=== PATIENT | female | born 1935 | race Caucasian/White ===

== ENCOUNTER → 2019-07-20 15:23 | Day surgery (SDC) | payer MEDICARE, SELFPAY ==
--- NOTE | 2019-07-20 06:28 | SUR.OPER ---
Patient brought to GI Lab. Instructions for patient undergoing Capsule Endoscopy reviewed with patient. Consent form signed. Sensor array applied to patient's abdomen and connected to recorded. Patient swallowed capsule with 12 ozs of water infused with Simethicone. Patient instructed they may have clear liquids at 0830 this AM and eat or drink at 1030 this AM. Patient instructed to return to GI Lab at 1500 this afternoon for removal of recording device and to call [phone] or to return to the hospital if any nausea and vomiting or abdominal pain is experienced.
--- NOTE | 2019-07-20 14:51 | SUR.OPER ---
Patient arrived to GI lab at 1450. Patient had no questions.
== END | disposition home or self-care (01) ==
PROVIDERS: Visit Provider Internal Medicine Gastroenterology
PROC: 0DJ07ZZ Inspection of Upper Intestinal Tract, Via Natural or Artificial Opening (ICD-10-PCS; CPT 91110; principal; 2019-07-20 07:00)
DX: D64.9 Anemia, unspecified (principal)
CPT/HCPCS: 91110

== ENCOUNTER 2020-10-23 06:35 | Emergency (ER) | payer MEDICARE, SELFPAY ==
[2020-10-23 06:35] VITALS: BP 167/83; PULSE 81; RESP 14; TEMP 36.4; O2SAT 96
--- NOTE | 2020-10-23 06:40 | ECG_ITS ---
Measurements Intervals [place] Rate: 75 P: 152 CO: 172 QRS: 204 QRSD: 97 T: 165 QT: 414 QTc: 463 Interpretive Statements SINUS OR ECTOPIC ATRIAL RHYTHM MINIMAL Q WAVES- INFERIOR LEADS BASELINE ARTIFACT- I, II, III, AVR, AVL, AVF, V1-V6 BORDERLINE ECG Electronically Signed On 10-23-2020 8:49:22 CDT by Sammy Jerry D.O.
[2020-10-23 06:44] LABS: Glucose Point of Care 92 (65-105)
--- NOTE | 2020-10-23 07:00 | PC.NURSE ---
pt having continuous bouts of liquid diarrhea. unable to keep patients depends and linens clean. family at bedside.
[2020-10-23 07:27] LABS: Basophils Percent Auto 0.3 % (0.2-1.2); Eosinophils Absolute Auto 0.1 K/mm3 (0-0.3); Eosinophils Percent Auto 0.8 % (0-4.4); Hematocrit 40.7 % (37.0-47.0); Hemoglobin 12.8 g/dL (12.0-15.0); Immature Granulocyte Absolute 0.03 K/mm3 (0.00-0.031); Immature Granulocyte Percent A 0.3 % (0-0.5); Lymphocytes Absolute Auto 2.06 K/mm3 (0.9-3.2); Lymphocytes Percent Auto 17.5 % (18.3-44.2); Mean Corpuscular HGB Conc 31.4 g/dl (32-36); Mean Corpuscular Hemoglobin 30.3 pg (26-34); Mean Corpuscular Volume 96.4 fl (80-100); Mean Platelet Volume 10.4 fl (7.4-10.4); Monocytes Absolute Auto 0.6 K/mm3 (0.1-0.6); Monocytes Percent Auto 5.4 % (2.6-8.5); Neutrophils Absolute Auto 8.9 K/mm3 (1.3-6.7); Neutrophils Percent Auto 75.7 % (45.5-73.1); Platelet Count Result 305 k/mm3 (150-375); Red Blood Count 4.22 M/mm3 (4.2-5.4); Red Cell Distribution Width 16.6 % (11.5-14.5); White Blood Count 11.8 K/mm3 (4.5-10.0)
[2020-10-23] MEDS: SODIUM CHLORIDE 0.9% IV 1,000 ML 999 ML IV CONT (07:39)
[2020-10-23 08:37] LABS: Alanine Aminotransferase 14 U/L (4-35); Alkaline Phosphatase 74 U/L (38-126); Anion Gap 8 mmol/L (8-16); Aspartate Amino Transferase 30 U/L (14-36); Bilirubin,Total 0.3 mg/dL (0.2-1.3); Blood Urea Nitrogen 64 mg/dL (7-17); Calcium 9.9 mg/dL (8.4-10.2); Carbon Dioxide 22 mmol/L (22-30); Chloride 109 mmol/L (98-107); Estimated CRCL calculation 14 ml/min; Estimated Glomerular Filt Rate 19; Glucose 132 mg/dL (65-105); Potassium 3.7 mmol/L (3.4-5.0); Sodium 139 mmol/L (137-145)
--- NOTE | 2020-10-23 08:43 | ED.GENADULT ---
HPI - General Adult General Chief complaint: Unspecified Stated complaint: cold sweats Time Seen by Provider: 10/23/20 07:00 History of Present Illness HPI narrative: Patient is an 84-year-old female who presents ER with diarrhea. Symptoms began last night. She has a point where she feels like she is constantly having stool come out. These are associate with cold sweats and shaking chills. She has felt feverish but has no documented fevers. No known sick contacts. Has not been on antibiotics recently. No aggravating or alleviating factors. No syncope. 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 Related Data Home Medications Medication Instructions Recorded Confirmed cyanocobalamin (vitamin B-12) 1,000 mcg PO DAILY 05/26/19 10/11/20 [Vitamin B-12] sodium bicarbonate 650 mg tablet 650 mg PO BID 08/02/19 10/11/20 cholecalciferol (vitamin D3) 25 mcg PO DAILY 08/02/20 10/11/20 ferrous sulfate [Iron (ferrous 325 mg PO DAILY 08/02/20 10/11/20 sulfate)] aipoaxzhiesh-kymafnui-nomgcj 1 tablet PO DAILY 08/02/20 10/11/20 [Multivitamin 50 Plus] Allergies Allergy/AdvReac Type Severity Reaction Status Date / Time No Known Allergies Allergy Verified 10/11/20 09:52 Review of Systems Review of Systems: All systems reviewed & are unremarkable except as noted in HPI and below Constitutional: Constitutional: Reports chills, Reports excessive sweating and Reports fever(s) Cardiovascular: Cardiovascular: Denies chest pain and Denies radiating jaw, neck or arm pain Gastrointestinal: Gastrointestinal: Reports abdominal pain, Denies hematochezia, Denies nausea and Denies vomiting Musculoskeletal: Musculoskeletal: Denies back pain and Reports muscle cramps (Calves) [facility] Past Medical History Medical History (Updated 10/23/20 @ 10:23 by Santos Smith MD) Anemia Anemia was evaluated in August [address] Hobson. Colonoscopy was unremarkable. Upper endoscopy showed a 4 mm nodular region at the gastroesophageal junction, which was found to be consistent with benign acute ulcer on histology. Anxiety with depression Benign essential hypertension BMI 29.0-29.9,adult BMI 30.0-30.9,adult BMI 30.0-30.9,adult Cataract CKD (chronic kidney disease) She is followed by Dr. Mejia. GFR is around 15%. Creatinine has been between 2.99 and 3.50 recently. DM type 2 (diabetes mellitus, type 2) Elevated homocysteine Encounter for Medicare annual wellness exam Encounter for routine adult health examination without abnormal findings Follow up GERD (gastroesophageal reflux disease) Hospital discharge follow-up Hx of renal cell cancer Hyperlipidemia Insomnia Mixed hyperlipidemia Nausea Obstructive sleep apnea Obstructive sleep apnea on CPAP On nursing home drug therapy URI (upper respiratory infection) Surgical History Surgical History History of hernia repair History of left nephrectomy Per Dr. Mendez January 25, 2011. Family History Family History Sibling Family history of primary malignant neoplasm of liver Father Family history of diabetes mellitus in first degree relative Diabetes mellitus Mother Family history of heart disease in male family member before age 55 Other Cerebrovascular accident Family history of cardiovascular disease Social History Social History Social History: The patient lives in [place] with her . She designates her Shay and her daughter Margarita Luna as her surrogate decision makers and she wishes to be a full code. Smoking status: Former smoker Smoking end date: 06/15/79 Alcohol intake: never Substance use: never Gender identity (if verbalized by the patient): Female Spiritual care concerns: No Agree to blood products: Yes Exam Narrative: Exam Narrative: GENERAL: Uncomfort
[2020-10-23 09:21] LABS: Add Urine Microscopic? YES; Appearance Urine Clear (Clear); Bacteria Urine Trace /hpf; Bilirubin Urine Negative (Negative); Blood Urine Negative (Negative); Color Urine Yellow (Yellow); Glucose Urine UA Negative (Negative); Ketones Urine Negative (Negative); Leukocyte Esterase Ur Negative LEU/UL (Negative); Nitrate Urine Negative (Negative); Protein Urine 2+ mg/dL (Negative); RBC Urine 0-2 /hpf (0-2); Specific Grav Ur 1.009 (1.001-1.035); Urobilinogen Urine Negative mg/dL (<2.0); WBC Urine 0-3 /hpf
== END 2020-10-23 10:39 | disposition home or self-care (01) ==
PROVIDERS: Emergency Medicine; Emergency Provider Emergency Medicine; PCP Internal Medicine
DX: K52.9 Noninfective gastroenteritis and colitis, unspecified (principal); D64.9 Anemia, unspecified; F41.9 Anxiety disorder, unspecified; F32.9 Major depressive disorder, single episode, unspecified; I12.9 Hypertensive chronic kidney disease with stage 1 through stage 4 chronic kidney disease, or unspecified chronic kidney disease; E11.22 Type 2 diabetes mellitus with diabetic chronic kidney disease; N18.9 Chronic kidney disease, unspecified; E78.5 Hyperlipidemia, unspecified; G47.30 Sleep apnea, unspecified
CPT/HCPCS: 36415; 80053; 81001; 82948; 85025; 93005; 96361; 96374; 99284; J0131; J7030

== ENCOUNTER 2020-10-26 10:38 | Outpatient (CLI) | payer MEDICARE, SELFPAY ==
[2020-10-26 11:15] LABS: Basophils Percent Auto 0.2 % (0.2-1.2); Eosinophils Absolute Auto 0.2 K/mm3 (0-0.3); Eosinophils Percent Auto 2.1 % (0-4.4); Hematocrit 32.8 % (37.0-47.0); Hemoglobin 10.3 g/dL (12.0-15.0); Immature Granulocyte Absolute 0.02 K/mm3 (0.00-0.031); Immature Granulocyte Percent A 0.2 % (0-0.5); Lymphocytes Absolute Auto 2.37 K/mm3 (0.9-3.2); Lymphocytes Percent Auto 24.4 % (18.3-44.2); Mean Corpuscular HGB Conc 31.4 g/dl (32-36); Mean Corpuscular Hemoglobin 30.1 pg (26-34); Mean Corpuscular Volume 95.9 fl (80-100); Mean Platelet Volume 10.1 fl (7.4-10.4); Monocytes Absolute Auto 1.1 K/mm3 (0.1-0.6); Monocytes Percent Auto 11.2 % (2.6-8.5); Neutrophils Percent Auto 61.9 % (45.5-73.1); Platelet Count Result 269 k/mm3 (150-375); Red Blood Count 3.42 M/mm3 (4.2-5.4); White Blood Count 9.7 K/mm3 (4.5-10.0)
[2020-10-26 11:26] LABS: Anion Gap 7 mmol/L (8-16); Blood Urea Nitrogen 57 mg/dL (7-17); Calcium 10.1 mg/dL (8.4-10.2); Carbon Dioxide 27 mmol/L (22-30); Chloride 107 mmol/L (98-107); Estimated Glomerular Filt Rate 19; Glucose 53 mg/dL (65-105); Potassium 4.3 mmol/L (3.4-5.0); Sodium 141 mmol/L (137-145)
== END 2020-10-26 10:39 | disposition home or self-care (01) ==
LOC: ANHLAB 10:41
PROVIDERS: PCP Internal Medicine; Visit Provider Internal Medicine
DX: K52.9 Noninfective gastroenteritis and colitis, unspecified (principal); I10 Essential (primary) hypertension; Z79.899 Other long term (current) drug therapy
CPT/HCPCS: 36415; 80048; 85025

== ENCOUNTER → 2021-04-29 07:00 | Outpatient (REF) | payer MEDICARE, SELFPAY | LOC: ANHLAB 07:00 | PROVIDERS: PCP Internal Medicine; Visit Provider Nurse Practitioner | DX: C44.41 Basal cell carcinoma of skin of scalp and neck (principal); C44.519 Basal cell carcinoma of skin of other part of trunk | CPT/HCPCS: 88305; 88331 ==

== ENCOUNTER 2021-12-12 08:56 | Outpatient (CLI) | payer MEDICARE, SELFPAY ==
--- NOTE | ~2021-12-12 | US_ITS ---
US abdomen complete DATE: 12/12/2021 09:35 INDICATION: Epigastric abdominal pain TECHNIQUE: Real-time imaging of the abdomen, Doppler analysis COMPARISON: 05/28/2019 right upper quadrant abdominal ultrasound examination 05/26/2019 CT abdomen pelvis FINDINGS: No hepatic space-occupying mass lesion is evident. Normal hepatopedal portal venous flow. N o pancreatic mass lesion. No gallstones or gallbladder wall thickening or pericholecystic fluid. Negative sonographic Marvin's sign. The common bile duct measures 2.4 mm, normal. Right kidney measures approximately 8.5 mm length. No renal mass lesion or hydronephrosis. The left k idney is surgically absent. Normal caliber of the abdominal aorta. The inferior vena cava is unremarkable. Normal splenic size. IMPRESSION: Status post left nephrectomy; otherwise unremarkable examination Reviewed, dictated and finalized at Location [facility]. Reviewed, dictated and finalized at location B.
--- NOTE | ~2021-12-12 | XR_ITS ---
EXAMINATION: XR UGIAC wo kub DATE: 12/12/2021 10:24 INDICATION: Epigastric pain TECHNIQUE: The patient drank thick barium, gas-producing crystals, and thin barium. A total of 651 fl uoroscopic images of the esophagus, stomach, and proximal small bowel were obtained. Fluoroscopy expo sure time was 1.8 minutes. COMPARISON: None. FINDINGS: The esophagus is normal without mass or stricture. Esophageal motility is within normal ramírez its for age. There is a small sliding-type hiatal hernia. There was some reflux of contrast from the intra-abdominal into the intrathoracic portion of the stomach. No. Subsequent gastroesophageal reflux with provocative maneuvers. The stomach and proximal small bowel are normal. Multiple metallic coils project over the central abdomen consistent with prior ventral hernia repair. IMPRESSION: 1. Small sliding-type hiatal hernia with reflux of contrast from the intra-abdominal into the intrath oracic portion of the stomach but with no further gastroesophageal reflux. Reviewed, dictated and finalized at location A. IMPRESSION: 1. Small sliding-type hiatal hernia with reflux of contrast from the intra-abdo amy into the intrathoracic portion of the stomach but with no further gastroe sophageal reflux.
== END 2021-12-12 08:57 | disposition home or self-care (01) ==
PROVIDERS: PCP Internal Medicine; Visit Provider Internal Medicine
DX: R10.13 Epigastric pain (principal); K44.9 Diaphragmatic hernia without obstruction or gangrene; K21.9 Gastro-esophageal reflux disease without esophagitis
CPT/HCPCS: 74246; 76700

== ENCOUNTER 2022-08-28 08:33 | Outpatient (CLI) | payer MEDICARE, SELFPAY ==
[2022-08-28 09:59] LABS: Alanine Aminotransferase 22 U/L (6-35); Albumin Level 4.3 g/dL (3.5-5.1); Alkaline Phosphatase 131 U/L (38-126); Anion Gap 9 mmol/L (8-16); Aspartate Amino Transferase 27 U/L (14-36); Bilirubin,Total 0.6 mg/dL (0.2-1.3); Blood Urea Nitrogen 59 mg/dL (7-17); Calcium 9.8 mg/dL (8.4-10.2); Carbon Dioxide 22 mmol/L (22-30); Chloride 107 mmol/L (98-107); Cholesterol 144 mg/dL (0-200); Estimated Glomerular Filt Rate 18; Glucose 116 mg/dL (65-110); HDL Direct 39 mg/dL; Potassium 4.8 mmol/L (3.4-5.0); Sodium 138 mmol/L (137-145); Triglycerides 204 mg/dL (<150)
[2022-08-28 10:11] LABS: LDL Cholesterol Direct 47 mg/dL
[2022-08-28 10:12] LABS: Free T4 Free Thyroxine 1.31 ng/mL (0.78-2.19)
[2022-08-28 10:21] LABS: Hemoglobin A1C 5.7 % (<5.7)
== END 2022-08-28 08:34 | disposition home or self-care (01) ==
LOC: ANHLAB 08:35
PROVIDERS: PCP Internal Medicine; Visit Provider Internal Medicine
DX: E11.22 Type 2 diabetes mellitus with diabetic chronic kidney disease (principal); E78.2 Mixed hyperlipidemia; Z13.29 Encounter for screening for other suspected endocrine disorder; I10 Essential (primary) hypertension; Z79.899 Other long term (current) drug therapy
CPT/HCPCS: 36415; 80053; 80061; 83036; 84439; 84443

== ENCOUNTER 2022-09-11 10:43 | Outpatient (CLI) | payer MEDICARE, SELFPAY ==
--- NOTE | ~2022-09-11 | XR_ITS ---
Clinical Indication: Cough PA and lateral views of the chest: Comparison: 05/26/2019 Findings: The lungs are clear, without evidence of focal consolidation or pleural effusion. Probable COPD. Cardiomediastinal silhouette is within normal limits. Bones and soft tissues are unremarkable. Impression: Probable COPD. Reviewed, dictated and finalized at location . Impression: Probable COPD.
== END 2022-09-11 10:44 | disposition home or self-care (01) ==
PROVIDERS: PCP Internal Medicine; Visit Provider Internal Medicine
DX: R05.9 Cough, unspecified (principal); R91.8 Other nonspecific abnormal finding of lung field
CPT/HCPCS: 36415; 71046; 85025; 96372; Q5106

== ENCOUNTER 2023-01-01 09:57 | Outpatient (CLI) | payer MEDICARE, SELFPAY ==
[2023-01-01 10:41] LABS: Alanine Aminotransferase 14 U/L (6-35); Albumin Level 4.1 g/dL (3.5-5.1); Alkaline Phosphatase 122 U/L (38-126); Anion Gap 8 mmol/L (8-16); Aspartate Amino Transferase 24 U/L (14-36); Bilirubin,Total 0.5 mg/dL (0.2-1.3); Blood Urea Nitrogen 44 mg/dL (7-17); Calcium 9.7 mg/dL (8.4-10.2); Carbon Dioxide 26 mmol/L (22-30); Chloride 103 mmol/L (98-107); Cholesterol 135 mg/dL (0-200); Estimated Glomerular Filt Rate 16; Glucose 121 mg/dL (65-110); HDL Direct 40 mg/dL; Potassium 4.8 mmol/L (3.4-5.0); Sodium 137 mmol/L (137-145); Triglycerides 182 mg/dL (<150)
[2023-01-01 10:52] LABS: LDL Cholesterol Direct 47 mg/dL
[2023-01-01 12:43] LABS: Free T4 Free Thyroxine 1.56 ng/mL (0.78-2.19)
[2023-01-01 21:24] LABS: Hemoglobin A1C 5.5 % (<5.7)
== END 2023-01-01 09:58 | disposition home or self-care (01) ==
LOC: ANHLAB 10:02
PROVIDERS: PCP Internal Medicine; Visit Provider Internal Medicine
DX: E11.22 Type 2 diabetes mellitus with diabetic chronic kidney disease (principal); I10 Essential (primary) hypertension; Z79.899 Other long term (current) drug therapy; Z13.29 Encounter for screening for other suspected endocrine disorder; E78.2 Mixed hyperlipidemia
CPT/HCPCS: 36415; 80053; 80061; 83036; 84439; 84443

== ENCOUNTER 2023-02-02 08:10 | Outpatient (CLI) | payer MEDICARE, SELFPAY ==
--- NOTE | ~2023-02-02 | XR_ITS ---
EXAMINATION: XR barium swallow modified DATE: 02/02/2023 08:57 INDICATION: Dysphagia, unspecified. TECHNIQUE: The patient was given barium-containing material of multiple consistencies to swallow by t [place] speech pathologist while I performed fluoroscopy. Fluoroscopy exposure time was 0.5 minutes. The n umber of fluoroscopy images saved to the PACS was 1. Dose-area product was 0.392 Gy-cm^2. FINDINGS: The oral stage, pharyngeal stage, and cervical/esophageal stage of the swallow are normal. IMPRESSION: 1. Normal modified barium swallow. 2. Please refer to the speech therapy report for recommendations. Reviewed, dictated and finalized at location A.
--- NOTE | 2023-02-02 08:58 | REHSTMBS ---
Assessment and note entered by Nancy Mckeon, PATTERN [employer]ER Modified Barium Swallow Evaluation Feeding Type Recommended Oral Food Consistency Regular, Level 7 Liquid Consistency Thin (0) ST Clinical Summary MODIFIED BARIUM SWALLOW This patient was seen for a Modified Barium Swallow study at the request of her physician. She reports that for several months, she has experienced pain in her lower right chest area, below the level of the rib cage and to the right of her sternum. Patient reports a history of belching a lot when eating and is concerned that this is a problem with her gall bladder. She denies any difficulty with swallowing including coughing or becoming choked when eating or drinking. Patient was viewed in the lateral position to the level of C5/C6. She was presented with uncontrolled thin liquid contrast medium per cup, and then per straw, pudding mixed with semi-solid contrast medium, and a large portion of cracker pieces coated with the pudding mixture. On each presentation, swallows were elicited quickly with no evidence of penetration or aspiration and no risk for aspiration. Additionally, there was no vallecular or pharyngeal residue that could lend itself to aspiration after the swallows. Results indicate this patient's swallowing skills are within normal limits. She is referred back to her physician for further assessment of her complaints. Thank you for this referral.
== END 2023-02-02 08:11 | disposition home or self-care (01) ==
PROVIDERS: PCP Internal Medicine; Visit Provider Internal Medicine
DX: R13.10 Dysphagia, unspecified (principal)
CPT/HCPCS: 92611

== ENCOUNTER 2023-03-26 08:50 | Outpatient (CLI) | payer MEDICARE, SELFPAY ==
[2023-03-26 09:53] LABS: Albumin Level 4.3 g/dL (3.5-5.1); Anion Gap 13 mmol/L (8-16); Blood Urea Nitrogen 52 mg/dL (7-17); Carbon Dioxide 22 mmol/L (22-30); Chloride 101 mmol/L (98-107); Estimated Glomerular Filt Rate 17; Glucose 113 mg/dL (65-110); Phosphorus 3.3 mg/dL (2.5-4.5); Potassium 3.8 mmol/L (3.4-5.0); Sodium 136 mmol/L (137-145)
[2023-03-26 10:36] LABS: Creatinine Urine 34.3 mg/dL
[2023-03-26 10:41] LABS: MALB Creatinine Ratio 188.3 mg/g (0-30); Microalbumin Urine Random 64.6 mg/L (0-16.7)
== END 2023-03-26 08:51 | disposition home or self-care (01) ==
LOC: ANHLAB 08:54
PROVIDERS: PCP Internal Medicine
DX: N18.5 Chronic kidney disease, stage 5 (principal); I10 Essential (primary) hypertension; N25.81 Secondary hyperparathyroidism of renal origin; D47.2 Monoclonal gammopathy; E87.5 Hyperkalemia
CPT/HCPCS: 36415; 80069; 82043

== ENCOUNTER 2023-05-25 11:37 | Outpatient (CLI) | payer MEDICARE, SELFPAY ==
[2023-05-25 18:47] LABS: Alanine Aminotransferase 13 U/L (6-35); Albumin Level 4.3 g/dL (3.5-5.1); Alkaline Phosphatase 111 U/L (38-126); Anion Gap 12 mmol/L (8-16); Aspartate Amino Transferase 26 U/L (14-36); Bilirubin,Total 0.5 mg/dL (0.2-1.3); Blood Urea Nitrogen 45 mg/dL (7-17); Calcium 10.3 mg/dL (8.4-10.2); Carbon Dioxide 21 mmol/L (22-30); Chloride 105 mmol/L (98-107); Cholesterol 148 mg/dL (0-200); Estimated Glomerular Filt Rate 19; Glucose 109 mg/dL (65-110); HDL Direct 43 mg/dL; Potassium 4.3 mmol/L (3.4-5.0); Sodium 138 mmol/L (137-145); Triglycerides 192 mg/dL (<150)
[2023-05-25 18:58] LABS: LDL Cholesterol Direct 56 mg/dL
[2023-05-25 20:02] LABS: Folic Acid > 20.0 ng/mL (2.76->20)
== END 2023-05-25 11:38 | disposition home or self-care (01) ==
LOC: ANHLAB 11:38
PROVIDERS: PCP Internal Medicine; Visit Provider Internal Medicine
DX: E78.2 Mixed hyperlipidemia (principal); I10 Essential (primary) hypertension; E53.8 Deficiency of other specified B group vitamins
CPT/HCPCS: 36415; 80053; 80061; 82607; 82746

== ENCOUNTER 2023-07-23 08:30 | Outpatient (CLI) | payer MEDICARE, SELFPAY ==
[2023-07-23 11:54] LABS: Albumin Level 3.9 g/dL (3.5-5.1); Anion Gap 11 mmol/L (8-16); Blood Urea Nitrogen 55 mg/dL (7-17); Calcium 9.8 mg/dL (8.4-10.2); Carbon Dioxide 21 mmol/L (22-30); Chloride 107 mmol/L (98-107); Estimated Glomerular Filt Rate 20; Glucose 110 mg/dL (65-110); Phosphorus 3.7 mg/dL (2.5-4.5); Sodium 139 mmol/L (137-145)
[2023-07-23 11:59] LABS: Parathyroid Intact 318.4 pg/mL (7.5-53.5)
[2023-07-23 12:42] LABS: Creatinine Urine 52.4 mg/dL
== END 2023-07-23 08:31 | disposition home or self-care (01) ==
LOC: ANHLAB 08:39
PROVIDERS: PCP Internal Medicine
DX: N25.81 Secondary hyperparathyroidism of renal origin (principal); N18.5 Chronic kidney disease, stage 5; D63.1 Anemia in chronic kidney disease
CPT/HCPCS: 36415; 80069; 82043; 83970

== ENCOUNTER 2023-09-03 09:42 | Outpatient (CLI) | payer MEDICARE, SELFPAY ==
[2023-09-03 16:49] LABS: Microalbumin Urine Random 147.8 mg/L (0-16.7)
[2023-09-03 16:50] LABS: Creatinine Urine 39.8 mg/dL; MALB Creatinine Ratio 371.4 mg/g (0-30)
[2023-09-03 16:53] LABS: Albumin Level 4.3 g/dL (3.5-5.1); Anion Gap 9 mmol/L (8-16); Blood Urea Nitrogen 46 mg/dL (7-17); Calcium 10.4 mg/dL (8.4-10.2); Carbon Dioxide 23 mmol/L (22-30); Chloride 105 mmol/L (98-107); Estimated Glomerular Filt Rate 18; Glucose 107 mg/dL (65-110); Phosphorus 3.4 mg/dL (2.5-4.5); Sodium 137 mmol/L (137-145)
[2023-09-03 16:59] LABS: Parathyroid Intact 328.4 pg/mL (7.5-53.5)
== END 2023-09-03 09:43 | disposition home or self-care (01) ==
PROVIDERS: PCP Internal Medicine; Visit Provider Internal Medicine Hematology & Oncology
DX: N18.5 Chronic kidney disease, stage 5 (principal); N25.81 Secondary hyperparathyroidism of renal origin; D63.1 Anemia in chronic kidney disease
CPT/HCPCS: 36415; 80069; 82043; 83970

== ENCOUNTER 2023-09-17 11:37 | Outpatient (CLI) | payer MEDICARE, SELFPAY ==
[2023-09-17 12:47] LABS: Alanine Aminotransferase 18 U/L (6-35); Albumin Level 4.5 g/dL (3.5-5.1); Alkaline Phosphatase 123 U/L (38-126); Anion Gap 10 mmol/L (4-12); Aspartate Amino Transferase 23 U/L (14-36); Bilirubin,Total 0.5 mg/dL (0.2-1.3); Blood Urea Nitrogen 52 mg/dL (7-17); Calcium 10.8 mg/dL (8.4-10.2); Carbon Dioxide 23 mmol/L (22-30); Chloride 105 mmol/L (98-107); Estimated Glomerular Filt Rate 16; Glucose 116 mg/dL (65-110); Potassium 4.1 mmol/L (3.4-5.0); Sodium 138 mmol/L (137-145)
[2023-09-17 17:06] LABS: Free T4 Free Thyroxine 1.61 ng/mL (0.78-2.19); Vitamin D 25 Hydroxy 68.3 ng/mL
== END 2023-09-17 11:38 | disposition home or self-care (01) ==
PROVIDERS: PCP Internal Medicine; Visit Provider Internal Medicine Hematology & Oncology
DX: E55.9 Vitamin D deficiency, unspecified (principal); E11.9 Type 2 diabetes mellitus without complications; I10 Essential (primary) hypertension; Z13.29 Encounter for screening for other suspected endocrine disorder; Z79.899 Other long term (current) drug therapy; E11.22 Type 2 diabetes mellitus with diabetic chronic kidney disease
CPT/HCPCS: 36415; 80053; 82306; 83036; 84439; 84443

== ENCOUNTER 2023-10-01 09:14 | Outpatient (CLI) | payer MEDICARE, SELFPAY ==
[2023-10-01 11:26] LABS: Appearance Urine Clear (Clear); Bilirubin Urine Negative (Negative); Blood Urine Negative (Negative); Color Urine Yellow (Yellow); Glucose Urine UA Negative (Negative); Ketones Urine Negative (Negative); Leukocyte Esterase Ur Negative LEU/UL (Negative); Nitrate Urine Negative (Negative); Protein Urine Negative (Negative); Specific Grav Ur 1.009 (1.001-1.035); Urobilinogen Urine 0.2 mg/dL (<2.0); pH Urine 6.5 (5.0-9.0)
[2023-10-01 11:29] LABS: Add Urine Microscopic? NO
== END 2023-10-01 09:15 | disposition home or self-care (01) ==
PROVIDERS: PCP Internal Medicine; Visit Provider Internal Medicine Hematology & Oncology
DX: Z79.899 Other long term (current) drug therapy (principal)
CPT/HCPCS: 81003

== ENCOUNTER 2023-11-05 15:46 | Outpatient (CLI) | payer MEDICARE, SELFPAY ==
--- NOTE | ~2023-11-05 | XR_ITS ---
EXAMINATION: XR chest 2V DATE: 11/05/2023 16:02 INDICATION: Other specified cough. TECHNIQUE: Frontal and lateral views of the chest were obtained. COMPARISON: Chest 2 views 09/11/2022, chest CT 08/18/2018 FINDINGS: There is no pneumonia, pleural effusion, or pneumothorax. The heart size is normal. There i s a left suprahilar mass. IMPRESSION: 1. Left suprahilar mass suspicious for primary bronchogenic carcinoma. Chest CT with contrast is lio mmended. Reviewed, dictated and finalized at location A. IMPRESSION: 1. Left suprahilar mass suspicious for primary bronchogenic carcinoma. Chest CT with contrast is recommended.
[2023-11-05 12:10] LABS: Alanine Aminotransferase 14 U/L (6-35); Albumin Level 4.2 g/dL (3.5-5.1); Alkaline Phosphatase 123 U/L (38-126); Anion Gap 10 mmol/L (4-12); Aspartate Amino Transferase 20 U/L (14-36); Bilirubin,Total 0.5 mg/dL (0.2-1.3); Blood Urea Nitrogen 39 mg/dL (7-17); Calcium 10.4 mg/dL (8.4-10.2); Carbon Dioxide 17 mmol/L (22-30); Chloride 109 mmol/L (98-107); Estimated Glomerular Filt Rate 18; Glucose 130 mg/dL (65-110); Iron 99 ug/dL (37-170); Phosphorus 3.4 mg/dL (2.5-4.5); Potassium 4.8 mmol/L (3.4-5.0); Sodium 136 mmol/L (137-145)
[2023-11-05 12:20] LABS: Percent Iron Saturation 46 % (20-50)
[2023-11-05 12:21] LABS: Parathyroid Intact 187.1 pg/mL (7.5-53.5)
[2023-11-05 12:31] LABS: Creatinine Urine 41.9 mg/dL
[2023-11-05 12:36] LABS: MALB Creatinine Ratio 302.1 mg/g (0-30); Microalbumin Urine Random 126.6 mg/L (0-16.7)
== END 2023-11-05 15:47 | disposition home or self-care (01) ==
PROVIDERS: PCP Internal Medicine; Visit Provider Internal Medicine
DX: R05.8 Other specified cough (principal); D63.1 Anemia in chronic kidney disease; N18.4 Chronic kidney disease, stage 4 (severe)
CPT/HCPCS: 36415; 71046; 80053; 82043; 82728; 83540; 83550; 83970; 84100; 85025; 96372; Q5106

== ENCOUNTER 2023-11-13 11:12 | Outpatient (CLI) | payer MEDICARE, SELFPAY ==
--- NOTE | ~2023-11-13 | CT_ITS ---
CT Scan of the Chest without Contrast: Clinical Indication: Abnormal findings on diagnostic imaging Technique: Contiguous sections were acquired throughout the chest without intravenous contrast. Dose reduction technique was used on this scan by utilizing automated exposure control and iterative recon struction technique. The dose-length product (DLP) was 120.41 mGy-cm. Findings: There is a 6.0 x 3.2 x 5.2 cm mass in the left upper lobe abutting and invading directly into the lef t mediastinum, extending into the left hilum posterior to the left upper lobe bronchus. Mediastinal c omponent of the mass posterior to the left upper lobe bronchus measures approximately 5.2 x 2.8 cm in transverse dimensions (axial image 48). No other distinct mediastinal or hilar lymphadenopathy evide nt. No aortic aneurysm. No pleural or pericardial effusion. Right lung clear. No other left lung lesion identified. Images through the upper abdomen reveal no abnormalities. Impression: Large probable left upper lobe mass extending into the left hilum and directly invading into the left mediastinum, most likely bronchogenic carcinoma versus possibly other neoplastic lesion. Tissue samp ling advised to establish a histologic diagnosis. Reviewed, dictated and finalized at location M. Impression: Large probable left upper lobe mass extending into the left hilum and directly invading into the left mediastinum, most likely bronchogenic carcinoma versus p ossibly other neoplastic lesion. Tissue sampling advised to establish a histolo gic diagnosis.
== END 2023-11-13 11:13 | disposition home or self-care (01) ==
PROVIDERS: PCP Internal Medicine; Visit Provider Internal Medicine
DX: R93.89 Abnormal findings on diagnostic imaging of other specified body structures (principal); R91.8 Other nonspecific abnormal finding of lung field
CPT/HCPCS: 71250

== ENCOUNTER 2024-01-07 09:10 | Outpatient (CLI) | payer MEDICARE, SELFPAY ==
[2024-01-07 10:21] LABS: INR 0.9; Prothrombin Time 12.9 Seconds (11.1-14.7)
== END 2024-01-07 09:11 | disposition home or self-care (01) ==
LOC: ANHLAB 09:12
PROVIDERS: PCP Internal Medicine; Visit Provider Internal Medicine Hematology & Oncology
DX: Z79.01 Long term (current) use of anticoagulants (principal)
CPT/HCPCS: 36415; 85610

== ENCOUNTER 2024-02-18 09:15 | Outpatient (CLI) | payer MEDICARE, SELFPAY ==
[2024-02-18 12:55] LABS: Alanine Aminotransferase 12 U/L (6-35); Alkaline Phosphatase 101 U/L (38-126); Anion Gap 11 mmol/L (4-12); Aspartate Amino Transferase 21 U/L (14-36); Bilirubin,Total 0.3 mg/dL (0.2-1.3); Blood Urea Nitrogen 49 mg/dL (7-17); Calcium 9.8 mg/dL (8.4-10.2); Carbon Dioxide 23 mmol/L (22-30); Chloride 101 mmol/L (98-107); Cholesterol 119 mg/dL (0-200); Estimated Glomerular Filt Rate 19; Glucose 119 mg/dL (65-110); HDL Direct 39 mg/dL; Potassium 4.6 mmol/L (3.4-5.0); Sodium 135 mmol/L (137-145); Triglycerides 142 mg/dL (<150)
[2024-02-18 13:05] LABS: LDL Cholesterol Direct 43 mg/dL
[2024-02-18 15:02] LABS: Hemoglobin A1C 5.3 % (<5.7)
== END 2024-02-18 09:16 | disposition home or self-care (01) ==
LOC: ANHLAB 09:18
PROVIDERS: PCP Internal Medicine; Visit Provider Internal Medicine Hematology & Oncology
DX: E78.2 Mixed hyperlipidemia (principal); N17.9 Acute kidney failure, unspecified; N18.9 Chronic kidney disease, unspecified; Z79.899 Other long term (current) drug therapy; E11.22 Type 2 diabetes mellitus with diabetic chronic kidney disease
CPT/HCPCS: 36415; 80053; 80061; 83036

== ENCOUNTER 2024-03-10 08:38 | Outpatient (CLI) | payer MEDICARE, SELFPAY ==
[2024-03-10 11:02] LABS: Iron 117 ug/dL (37-170)
[2024-03-10 11:05] LABS: Creatinine Urine 45.4 mg/dL
[2024-03-10 11:06] LABS: Alanine Aminotransferase 14 U/L (6-35); Albumin Level 4.7 g/dL (3.5-5.1); Alkaline Phosphatase 98 U/L (38-126); Anion Gap 13 mmol/L (4-12); Aspartate Amino Transferase 24 U/L (14-36); Bilirubin,Total 0.6 mg/dL (0.2-1.3); Blood Urea Nitrogen 54 mg/dL (7-17); Calcium 10.3 mg/dL (8.4-10.2); Carbon Dioxide 21 mmol/L (22-30); Chloride 103 mmol/L (98-107); Estimated Glomerular Filt Rate 18; Glucose 107 mg/dL (65-110); Phosphorus 3.1 mg/dL (2.5-4.5); Sodium 137 mmol/L (137-145)
[2024-03-10 11:12] LABS: Parathyroid Intact 175.1 pg/mL (14.5-75.2)
[2024-03-10 11:13] LABS: Percent Iron Saturation 48 % (20-50)
[2024-03-10 11:36] LABS: Vitamin D 25 Hydroxy 77.4 ng/mL
[2024-03-10 12:32] LABS: MALB Creatinine Ratio 842.3 mg/g (0-30); Microalbumin Urine Random 382.4 mg/L (0-16.7)
== END 2024-03-10 08:39 | disposition home or self-care (01) ==
LOC: ANHLAB 08:42
PROVIDERS: PCP Internal Medicine; Visit Provider Internal Medicine Hematology & Oncology
DX: N18.4 Chronic kidney disease, stage 4 (severe) (principal)
CPT/HCPCS: 36415; 80053; 82043; 82306; 82728; 83540; 83550; 83970; 84100

== ENCOUNTER 2024-05-09 10:36 | Outpatient (CLI) | payer MEDICARE, SELFPAY ==
--- NOTE | ~2024-05-09 | US_ITS ---
EXAMINATION: US venous doppler [facility] DATE: 05/09/2024 11:43 INDICATION: Left lower limb edema and pain. TECHNIQUE: Grayscale ultrasound images without and with compression and Doppler ultrasound images of the bilateral lower extremity veins were obtained. COMPARISON: None. FINDINGS: The visualized portions of right common femoral vein, profunda (deep) femoral vein, femoral vein, pop liteal vein, peroneal veins, posterior tibial veins, and greater saphenous vein outflow are patent. The visualized portions of left common femoral vein, femoral vein, popliteal vein, peroneal veins, po sterior tibial veins, and greater saphenous vein outflow are patent. There is thrombus in left profun da femoral vein. IMPRESSION: 1. Deep vein thrombosis involving left profunda femoral vein. Reviewed, dictated and finalized at location A. OR OCCUPATIONAL THERAPIST
== END 2024-05-09 10:37 | disposition home or self-care (01) ==
PROVIDERS: PCP Internal Medicine; Visit Provider Internal Medicine
DX: I82.492 Acute embolism and thrombosis of other specified deep vein of left lower extremity (principal)
CPT/HCPCS: 93970

== ENCOUNTER 2024-05-09 13:38 | Outpatient (CLI) | payer MEDICARE, SELFPAY ==
[2024-05-09 13:56] LABS: Basophils Percent Auto 0.4 % (0.2-1.2); Eosinophils Absolute Auto 0.1 K/mm3 (0-0.3); Hematocrit 30.8 % (37.0-47.0); Hemoglobin 9.7 g/dL (12.0-15.0); Immature Granulocyte Absolute 0.03 K/mm3 (0.00-0.031); Immature Granulocyte Percent A 0.4 % (0-0.5); Lymphocytes Absolute Auto 1.53 K/mm3 (0.9-3.2); Lymphocytes Percent Auto 21.4 % (18.3-44.2); Mean Corpuscular HGB Conc 31.5 g/dl (32-36); Mean Corpuscular Hemoglobin 29.8 pg (26-34); Mean Corpuscular Volume 94.8 fl (80-100); Mean Platelet Volume 9.6 fl (7.4-10.4); Monocytes Absolute Auto 0.9 K/mm3 (0.1-0.6); Monocytes Percent Auto 12.3 % (2.6-8.5); Neutrophils Absolute Auto 4.5 K/mm3 (1.3-6.7); Neutrophils Percent Auto 63.5 % (45.5-73.1); Platelet Count Result 285 k/mm3 (150-375); Red Blood Count 3.25 M/mm3 (4.2-5.4); Red Cell Distribution Width 14.7 % (11.5-14.5); White Blood Count 7.1 K/mm3 (4.5-10.0)
[2024-05-09 17:12] LABS: Prothrombin Time 13.9 Seconds (11.1-14.7)
== END 2024-05-09 13:39 | disposition home or self-care (01) ==
LOC: ANHLAB 13:40
PROVIDERS: PCP Internal Medicine; Visit Provider Internal Medicine Hematology & Oncology
DX: D50.9 Iron deficiency anemia, unspecified (principal); N18.30 Chronic kidney disease, stage 3 unspecified; Z85.528 Personal history of other malignant neoplasm of kidney; Z79.899 Other long term (current) drug therapy
CPT/HCPCS: 36415; 85025; 85610

== ENCOUNTER 2024-05-19 09:27 | Emergency (ER) | payer MEDICARE, SELFPAY ==
--- NOTE | ~2024-05-19 | XR_ITS ---
EXAMINATION: XR foot LT min 3V DATE: 05/19/2024 10:10 INDICATION: Left foot pain. TECHNIQUE: 4 views of left foot were obtained. COMPARISON: None. FINDINGS: There is an expansile aggressive lytic lesion of distal left tibia. No fracture. There is m ild osteoarthritis of first metatarsophalangeal joint and mild to moderate osteoarthritis of some of the interphalangeal joints and midfoot joints. There are enthesophytes at the posterior and plantar a spects of calcaneal tuberosity. IMPRESSION: 1. Expansile aggressive lytic lesion of distal left tibia, most likely metastatic renal cell carcinom a. Reviewed, dictated and finalized at location A. URE FRAMER IMPRESSION: 1. Expansile aggressive lytic lesion of distal left tibia, most likely metastat ic renal cell carcinoma.
[2024-05-19 09:40] VITALS: BP 118/57; PULSE 73; RESP 16; TEMP 36.7; O2SAT 96
--- NOTE | 2024-05-19 12:26 | ED_ITS ---
HPI - General Adult General Chief complaint: Extremity Injury, Lower Stated complaint: left foot pain Time Seen by Provider: 05/19/24 11:39 History of Present Illness HPI narrative: 88-year-old female present to the emergency department for evaluation for left leg pain. Patient does have known lung cancer for which she is following up with oncology. Patient does not want to undergo treatment for the cancer at this time. Patient has been having worsening leg pain and was sent in to be evaluated for a DVT. Related Data Home Medications Medication Instructions Recorded Confirmed cyanocobalamin (vitamin B-12) 1,000 mcg PO DAILY 05/26/19 05/16/24 1,000 mcg tablet (Vitamin B-12) ferrous sulfate 325 mg (65 mg 325 mg PO DAILY 08/02/20 05/16/24 iron) tablet (Iron (ferrous sulfate)) hydralazine 100 mg tablet 100 mg PO TID 03/29/24 05/16/24 Allergies Allergy/AdvReac Type Severity Reaction Status Date / Time No Known Allergies Allergy Verified 05/10/24 13:54 Review of Systems Review of Systems: All systems reviewed & are unremarkable except as noted in HPI and below PMFSH Past Medical History Medical History Abdominal pain Acute kidney injury superimposed on CKD Acute pancreatitis Anemia Anemia was evaluated in August [address] Hobson. Colonoscopy was unremarkable. Upper endoscopy showed a 4 mm nodular region at the gastroesophageal junction, which was found to be consistent with benign acute ulcer on histology. Anemia of chronic disease Anxiety with depression Benign essential hypertension BMI 25.0-25.9,adult BMI 27.0-27.9,adult BMI 28.0-28.9,adult BMI 29.0-29.9,adult BMI 30.0-30.9,adult Body mass index 33.0-33.9, adult (03/08/18) Cataract Cerumen impaction CKD (chronic kidney disease) She is followed by Dr. Mejia. GFR is around 15%. Creatinine has been between 2.99 and 3.50 recently. Cough Diarrhea DM type 2 (diabetes mellitus, type 2) Dyspepsia Dysphagia Elevated homocysteine Encounter for Medicare annual wellness exam Encounter for routine adult health examination with abnormal findings Encounter for routine adult health examination without abnormal findings Follow up Gastroenteritis GERD (gastroesophageal reflux disease) Hx of renal cell cancer Hyperlipidemia Insomnia Mixed hyperlipidemia Nausea Obstructive sleep apnea on CPAP On [facility] drug therapy Pain and swelling of lower extremity Sinus drainage Torticollis URI (upper respiratory infection) Surgical History Surgical History History of hernia repair History of left nephrectomy Per Dr. Mendez January 25, 2011. Family History Family History Sibling Family history of primary malignant neoplasm of liver Father Family history of diabetes mellitus in first degree relative Diabetes mellitus Mother Family history of heart disease in male family member before age 55 Other Cerebrovascular accident Family history of cardiovascular disease Social History Social History Social History: The patient lives in [place] with her . She designates her Shay and her daughter Margarita Luna as her surrogate decision makers and she wishes to be a full code. Smoking packs per day: 1 Smoking cigarettes per day: 20.0 Years smoked: 3 Smoking pack-years: 3.00 Smoking status: Former smoker Tobacco type: cigarettes Second hand tobacco smoke exposure: Yes Smoking end date: 06/15/79 Alcohol intake: never Substance use: never Lack of Transportation: No Lack of Food: Never True Current Housing: I Have Housing Concerned About Future Housing: No Difficulty Paying Gas/Electric Bills: No Difficulty Paying for Meds: No Currently Unemployed: No Education: High School Diploma/GED Difficulty w/ Childcare or Family Care: No Gender identity (if verbalized by the patient): Female Spiritual care concerns: No Agree to blood products: Yes Exam Narrative: APPEARANCE: Well appearing, no pain, no distress, well-nourished. HEAD: normocephalic, atraumatic. EYES: PERRLA/EOMI, conjunctivae clear. NOSE: Normal no drainage EARS:TMS clear with good light reflex. THROAT: Pharynx clear, no exudate. NECK: Supple. No adenopathy, no masses. RESPIRATORY: Airway patent, respirations nonlabored. Clear to auscultation bilaterally, no rales, rhonchi, wheezing. CARDIOVASCULAR: Regular rate and rhythm without murmurs rubs or gallops. ABDOMINAL: Soft, nontender, nondistended, normal bowel sounds MUSCULOSKELETAL: Left ankle tenderness to palpation NEURO: Alert. Cranial nerves II through XII intact. Good gait. Good coordination SKIN: Warm, dry. Normal Color Course Course Emergency Course: Patient was up the results of her workup and encouraged to have follow-up Vital Signs Vital signs: Vital Signs Temperature 98.0 F 05/19/24 09:40 Pulse Rate 73 05/19/24 09:40 Respiratory Rate 16 05/19/24 09:40 Blood Pressure 118/57 L 05/19/24 09:40 Pulse Oximetry 96 05/19/24 09:40 Temperature 98.0 F 05/19/24 09:40 Pulse Rate 68 05/19/24 12:41 Respiratory Rate 16 05/19/24 12:41 Blood Pressure 166/71 H 05/19/24 12:41 Pulse Oximetry 100 05/19/24 12:41 Medical Decision Making MDM Narrative Medical decision making narrative: 88-year-old female presents emergency department for evaluation of left ankle pain. X-ray was concerning for metastatic lesion to the distal tibia. Patient family were updated on the results of this. Patient does have a PET scan scheduled on Thursday. Patient was informed that this may be metastatic lesion from her lung cancer or possible renal cell carcinoma. All questions concerns were addressed patient was comfortable the plan for discharge and close follow- up. Patient was advised he uses a walker to limit her weight-bearing. Differential Diagnosis Differential Diagnosis: Ankle sprain, ankle fracture, metastatic lesion to leg, ankle sprain Vital Signs Vital Signs: Vital Signs Temperature 98.0 F 05/19/24 09:40 Pulse Rate 73 05/19/24 09:40 Respiratory Rate 16 05/19/24 09:40 Blood Pressure 118/57 L 05/19/24 09:40 Pulse Oximetry 96 05/19/24 09:40 Temperature 98.0 F 05/19/24 09:40 Pulse Rate 68 05/19/24 12:41 Respiratory Rate 16 05/19/24 12:41 Blood Pressure 166/71 H 05/19/24 12:41 Pulse Oximetry 100 05/19/24 12:41 Imaging Data Radiologist's impression: Impressions Foot X-Ray 05/19/24 10:15 IMPRESSION: 1. 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 Discharge Plan Discharge Clinical Impression: Lesion of bone of ankle Patient Disposition: Home, Self-Care Condition: Stable Instructions: Antibiotic Form Additional Instructions: Tylenol for pain control, replace Tylenol with Huntley for additional pain control. Do not take Tylenol and Huntley at the same time as both contain acetaminophen. If you need to take Huntley for pain control then you need to increase her water intake and also take additional stool softeners. Use a walker to limit weight-bearing on the left foot/ankle. Have close follow-up with your primary care physician. If you have any worsening symptoms then please call or return to the emergency department. Have close follow-up with Oncology. Prescriptions: New hydrocodone-acetaminophen 5-325 mg tablet 1 tablet PO Q12H PRN (Reason: pain) Qty: 14 0RF (DME) walker Misc See Rx Instructions .Route Qty: 1 0RF Rx Instructions: As directed No Action ferrous sulfate [Iron (ferrous sulfate)] 325 mg (65 mg iron) Tablet 325 mg PO DAILY (DME) ROBERT griffith See Rx Instructions .Route .MEDSUPPLY Qty: 2 0RF Rx Instructions: As directed triamcinolone acetonide 0.5 % cream 1 applic topical TID Qty: 60 2RF benzonatate 200 mg capsule 200 mg PO TID PRN (Reason: cough) Qty: 30 1RF hydralazine 100 mg tablet 100 mg PO TID sodium bicarbonate 650 mg tablet 650 mg PO BID PRN (Reason: stomach upset) Qty: 180 1RF alprazolam 0.25 mg tablet 0.25 mg PO QHS PRN (Reason: anxiety) Qty: 30 0RF clonidine HCl 0.2 mg tablet 0.2 mg PO TID Qty: 270 1RF cyanocobalamin (vitamin B-12) [Vitamin B-12] 1,000 mcg Tablet 1,000 mcg PO DAILY (DME) Blood Glucose Test Strip See Rx Instructions .ROUTE .MEDSUPPLY Qty: 100 3RF Rx Instructions: As directed carvedilol 25 mg tablet See Rx Instructions .ROUTE .COMPLEX Qty: 270 3RF Rx Instructions: TAKE ONE and 1/2 TABLET BY MOUTH TWICE DAILY; (DME) Home Nebulizer Machine See Rx Instructions .Route .MEDSUPPLY Qty: 1 0RF Rx Instructions: As directed folic acid 1 mg tablet See Rx Instructions .ROUTE .COMPLEX Qty: 90 1RF Dose Instruction: TAKE 1 TABLET BY MOUTH EVERY DAY Rx Instructions: TAKE 1 TABLET BY MOUTH EVERY DAY atorvastatin 80 mg tablet 80 mg PO DAILY Qty: 90 1RF famotidine 20 mg tablet 20 mg PO BID Qty: 180 1RF trazodone 100 mg tablet 100 mg PO QHS Qty: 90 1RF torsemide 10 mg tablet 10 mg PO QAM Qty: 90 0RF Eliquis 2.5 mg tablet 2.5 mg PO BID Qty: 60 5RF (DME) [facility] True Metrix Glucose Test Strip See Rx Instructions .Route .MEDSUPPLY Qty: 100 0RF Rx Instructions: Test once daily Follow-up/Referrals: Dejon Segovia MD [Primary Care Provider] -
[2024-05-19] MEDS: HYDROcodone/acetaminophen (*CRX) 5-325 MG TABLET 1 TAB PO (12:28)
[2024-05-19 12:41] VITALS: BP 166/71; PULSE 68; RESP 16; O2SAT 100
== END 2024-05-19 12:45 | disposition home or self-care (01) ==
PROVIDERS: Emergency Provider Emergency Medicine; PCP Internal Medicine
DX: M89.9 Disorder of bone, unspecified (principal); C34.90 Malignant neoplasm of unspecified part of unspecified bronchus or lung; I12.9 Hypertensive chronic kidney disease with stage 1 through stage 4 chronic kidney disease, or unspecified chronic kidney disease; E11.22 Type 2 diabetes mellitus with diabetic chronic kidney disease; N18.9 Chronic kidney disease, unspecified; E78.2 Mixed hyperlipidemia; D63.8 Anemia in other chronic diseases classified elsewhere; K21.9 Gastro-esophageal reflux disease without esophagitis; G47.33 Obstructive sleep apnea (adult) (pediatric); F41.8 Other specified anxiety disorders; Z85.528 Personal history of other malignant neoplasm of kidney; Z87.891 Personal history of nicotine dependence; Z90.5 Acquired absence of kidney; Z79.01 Long term (current) use of anticoagulants; Z79.899 Other long term (current) drug therapy
CPT/HCPCS: 73630; 99283; A9270

== ENCOUNTER 2024-05-24 09:47 | Outpatient (CLI) | payer MEDICARE, SELFPAY ==
--- NOTE | ~2024-05-24 | PE_ITS ---
EXAMINATION: PET skull to mid thigh DATE: 05/24/2024 11:29 INDICATION: Lung cancer for restaging post radiation treatment TECHNIQUE: Blood glucose level was 132 mg/dL. 7.776 mCi of 18-fluorodeoxyglucose (18-FDG) was adminis tered i.v. Low dose computed tomography (CT) images were acquired from the base of the brain to the p roximal thighs for attenuation correction and anatomic localization. Positron emission tomography (PE T) images were acquired in the same distribution beginning 51 minutes after injection. Images includi ng fused PET/CT images were reconstructed in axial, coronal, and sagittal planes. Automated exposure control technique was employed. The dose-length product was 618.10mGy-cm. COMPARISON: CT studies dated 11/13/2023, 05/26/2019 and 08/18/2018 FINDINGS: Head/neck: There is symmetric increased activity in the oral cavity, ocular muscles and posterior paraspinal mus culature at the cranial cervical junction, all without CT correlate, likely physiologic. No pathologi celestine enlarged cervical lymphadenopathy or suspicious foci of increased FDG uptake in the visualized head or neck. Chest: No significant interval change in a couple masses at the AP window of the mediastinum the more cephal ad measuring 4.8 x 3.5 cm, previously 5.0 x 3.6 cm in the more caudal measuring 3.9 x 2.9 cm, previou sly 3.6 x 2.8 cm. Both masses demonstrate mild increased FDG uptake with maximal SUV of 3.8. There is a central photopenic region with decreased attenuation on CT within the more cephalad mass consisten t with some central necrosis. There are opacities with mild increased FDG uptake in the left lower lo be with maximal velocity of 3.4. The opacities however appear primarily to demonstrate linear and ban dlike patterns favoring atelectasis over pneumonia or malignancy. There is some additional mild linea r dependent atelectasis in the right lower lobe. No pleural effusion. Mild cardiomegaly. Atherosclero tic coronary artery calcifications. Minimal pericardial effusion. There is likely physiologic increas ed FDG uptake extending craniocaudally along the paraspinal musculature predominantly on the left nila e of the mid to lower thoracic spine which without radiologic correlate. Small sliding-type hiatal he rnia. Abdomen/pelvis/proximal thighs: Postoperative changes of prior left nephrectomy. There are couple 8-9 mm nodular soft tissue densitie s at the left renal fossa along with a similar sized curvilinear calcification, all without evident F DG uptake with no change in size of the soft tissue nodules since CT dated 03/03/2012 which suggests e ither small splenules or scarring. Physiologic renal accumulation and excretion of FDG activity in th e right kidney and bladder. Normal degree and heterogenous pattern of increased uptake throughout the liver without radiologic correlate or dominant FDG avid lesion. The gallbladder, pancreas, spleen an d bilateral adrenal glands are normal. Mild uptake scattered throughout the bowels without radiologic correlate, also likely physiologic. There is moderate diverticulosis along the sigmoid colon without adjacent from trace stranding to suggest diverticulitis. No bowel obstruction. Normal appendix. Post operative change of prior ventral hernia mesh repair. Anteverted uterus and bilateral adnexa are unre markable. No other abnormal foci of increased FDG uptake or pathologically enlarged lymphadenopathy i n the abdomen, pelvis or proximal thighs. Musculoskeletal: Moderate to severe left and mild to right hip osteoarthritis with asymmetric mild likely reactive syn ovial uptake at the left hip. Enthesopathic ossifications with associated mild FDG uptake at the bila teral greater trochanters and ischial tuberosities. Mild thoracolumbar levocurvature with moderate to severe thoracic and lumbar spondylosis. Old healed fracture of the right inferior pubic ramus. No wood spicious lytic, blastic or FDG avid bone lesions. IMPRESSION: 1. No significant interval change in size since 11/13/2023 in a couple mildly FDG avid masses at the A P window of the mediastinum consistent with likely metastatic renal cell carcinoma. No other lesions suspicious for metastatic disease. 2. Opacities in the left lower lobe with mild FDG uptake of linear and bandlike configuration which w ould favor atelectasis over pneumonia or malignancy. 3. Minimal pericardial effusion. 4. Status post left nephrectomy with no FDG uptake or interval change in size since 2011 in a couple subcentimeter soft tissue nodules at the nephrectomy bed which could represent either residual scarri ng or small splenules. 5. Small sliding-type hiatal hernia. 6. Sigmoid diverticulosis. Reviewed, dictated and finalized at location A. RY TECHNICIAN IMPRESSION: 1. No significant interval change in size since 11/13/2023 in a couple mildly FD G avid masses at the AP window of the mediastinum consistent with likely metast atic renal cell carcinoma. No other lesions suspicious for metastatic disease. 2. Opacities in the left lower lobe with mild FDG uptake of linear and bandlike configuration which would favor atelectasis over pneumonia or malignancy. 3. Minimal pericardial effusion. 4. Status post left nephrectomy with no FDG uptake or interval change in size s [id number] in a couple subcentimeter soft tissue nodules at the nephrectomy bed which could represent either residual scarring or small splenules. 5. Small sliding-type hiatal hernia. 6. Sigmoid diverticulosis.
[2024-05-24 10:11] LABS: Glucose Point of Care 132 mg/dl (65-105)
== END 2024-05-24 09:48 | disposition home or self-care (01) ==
PROVIDERS: PCP Internal Medicine; Visit Provider Radiology Radiation Oncology
DX: I31.39 Other pericardial effusion (noninflammatory) (principal); K57.30 Diverticulosis of large intestine without perforation or abscess without bleeding; K44.9 Diaphragmatic hernia without obstruction or gangrene; R91.8 Other nonspecific abnormal finding of lung field; Z85.528 Personal history of other malignant neoplasm of kidney
CPT/HCPCS: 78815; A9552

== ENCOUNTER 2024-08-23 11:01 | Outpatient (CLI) | payer MEDICARE, SELFPAY ==
--- NOTE | ~2024-08-23 | XR_ITS ---
XR tibia fibula LT 2V Ordering provider: Aishwarya Morris MD History: . C34.82 - Malignant neoplasm of overlapping sites of left ... . Comparison: May 19, 2024 FINDINGS: BONES: Bony fragment seen near to the medial tibial plateau. 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 SOFT TISSUES: Ossification seen posterior to the femoral condyles which may be a tendinous calcificat ion. 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 Small bony fragment seen near to the medial tibial plateau suggestive of a fracture. Clinical evaluat ion and follow-up advised Reviewed, dictated and finalized at location A. 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 Small bony fragment seen near to the medial tibial plateau suggestive of a frac ture. Clinical evaluation and follow-up advised
--- OUTSIDE RECORDS SUMMARY | 2024-08-23 12:46 | XMS_ITS | Referral Summary ---
Demographics Address [address] [place] [address] Home Phone Mobile Phone Preferred Language [place] Islander Marital Status Religion Affiliation Unknown Race White Ethnic Group Not or Lati no Author Organization [facility] Address [address] [address] Support Name Relationship Address Phone Shay Bello Spouse [address] [place] [address] Care Team Providers Care Frame Aligner Name Role Phone Dejon Segovia MD Primary Care Provider Source Comments [facility],non-owned Affiliates and Associated Physician Practices is amultiple site organization consisting of ambulatory clinics and hospital sitesin [place], [place], [place] and [place]. This disclosure is being madepursuant to the Care Everywhere program and may not contain all information available regarding this patient. Last updated 18.[facility] Social History Tobacco Use Types Packs/Day Years Used Date Smoking Tobacco: Never Assessed Sex and Gender Information Value Date Recorded Sex Assigned at Not on file Gender Identity Not on file Sexual Orientation Not on file Plan of Treatment Not on file Guarantor Name Account Type Relation to Patient Date of Phone Billing Address Bianca Bello Personal/Family Self 1935 [address] [place] [address] Care Teams Frame Aligner Relationship Specialty Start Date End Date Dejon Segovia MD [address] [place] [id number] PCP - General 03/09/18
--- OUTSIDE RECORDS SUMMARY | 2024-08-23 12:46 | XMS_ITS | Clinical Summary ---
Demographics Address [address] [place] [address] Home Phone Preferred Language Unknown Marital Status Nondenominational Affiliation Unknown Race White Ethnic Group Unknown Author Organization [facility] Address [address] [place] [address] Care Team Providers Care Career Services Officer Name Role Phone Dejon Segovia MD Primary Care Provider + Allergies No known active allergies Medications traZODone (DESYREL) 50 mg tablet 05/18/2019 Active quinapril (ACCUPRIL) 40 mg tablet 04/18/2019 Active hydrALAZINE (APRESOLINE) 100 mg Tablet tablet 06/01/2019 Ac tive folic acid (FOLVITE) 1 mg tablet 06/14/2019 Active carvedilol (COREG) 25 mg tablet 05/09/2019 Active atorvastatin (LIPITOR) 80 mg tablet 04/26/2019 Active ALPRAZolam (XANAX) 0.25 mg tablet 04/19/2019 Active omega-3 fatty acids-fish oil 300-1,000 mg Capsule Take by mouth daily. Active glimepiride (AMARYL) 2 mg tablet Take 2 mg by mouth daily with breakfast. Active cloNIDine HCL (CATAPRES) 0.1 mg tablet Take 0.1 mg by mouth 2 times daily. Active sodium bicarbonate 650 mg tablet Take 650 mg by mouth. 05/08/2020 Active furosemide (LASIX) 20 mg tablet 04/29/2020 Active quinapriL (ACCUPRIL) 20 mg tablet Take 20 mg by mouth 2 times daily. 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 History of kidney cancer 03/29/2020 Anemia of chronic renal failure, stage 5 020 Encounters Date Type Department Care Team Description 08/22/2024 Orders Only [facility] Oncology and Hematology - Sergei [address]esh [address] Vicente Shen MD Anemia of chronic renal failure, stage 5 (CMS/HCC) 08/09/2024 External Device Data [facility] ABSTRACTION Provider, Abstract 08/08/2024 Orders Only [facility] Oncology and Hematology - Sergei Kalpesh [address] [place] [id number] Vicente Shen MD Anemia of chronic renal failure, stage 5 (CMS/HCC) 07/25/2024 Orders Only [facility] Oncology and Hematology - Sergei [address] [place] [phone] Vicente Shen MD Anemia of chronic renal failure, stage 5 (CMS/HCC) 07/11/2024 Orders Only [facility] Oncology and Hematology - Sergei Kalpesh [address] [place] [id number] Vicente Shen MD Anemia of chronic renal failure, stage 5 (CMS/HCC) 07/07/2024 External Device Data [facility] ABSTRACTION Provider, Abstract 07/06/2024 External Device Data [facility] ABSTRACTION Provider, Abstract 07/05/2024 External Device Data [facility] ABSTRACTION Provider, Abstract 06/29/2024 External Device Data [facility] ABSTRACTION Provider, Abstract 06/27/2024 Orders Only [facility] Oncology and Hematology - Sergei Kal[address]esh [address] [place] [address] Vicente Shen MD Anemia of chronic renal failure, stage 5 (CMS/HCC) 06/13/2024 Orders Only [facility] Oncology and Hematology - Sergei Kalepsh [address] [place] [phone] Vicente Shen MD Anemia of chronic renal failure, stage 5 (CMS/HCC) 05/30/2024 Orders Only [facility] Oncology and Hematology - [address] [place] [phone] Vicente Shen MD Anemia of chronic renal failure, stage 5 (CMS/HCC) from Last 3 Months Family History Medical History Relation Name Comments Cancer Brother 1 Diabetes Father Heart Disease Father Relation Name Status Comments Brother 1 Brother 2 Alive Father Mother Sister 1 Sister 2 Sister 3 Social History Tobacco Use Types Packs/Day Years Used Date Smoking Tobacco: Never Smokeless Tobacco: Never Tobacco Cessation:Counseling Given: Not Answered Alcohol Use Standard Drinks/Week Comments Never 0 (1 standard drink = 0.6 oz pur e alcohol) Comments No Sex and Gender Information Value Date Recorded Sex Assigned at Not on file Legal Sex Female 9:58 AM [employer] Gender Identity Not on file Sexual Orientation Not on file Last Filed Vital Signs Vital Sign Reading Time Taken Comments Blood Pressure 157/78 04/25/2024 8:30 AM [employer] Pulse 73 04/25/2024 8:30 AM [employer] Temperature 36.3 C (97.3 F) 04/25/2024 8:30 AM [employer] Respiratory Rate 16 04/25/2024 8:30 AM [employer] Oxygen Saturation 95% 04/25/2024 8:30 AM [employer] Inhaled Oxygen Concentration - - Weight 60.3 kg (133 lb) 04/25/2024 8:30 AM [employer] Height 152.4 cm (5') 04/10/2022 8:40 AM CDT Body Mass Index 25.97 04/10/2022 8:40 AM CDT Plan of Treatment Health Maintenance Due Date Last Done Comments DIABETES ANNUAL FOOT EXAM 11/29/1953 DIABETES MICROALBUMIN ANNUAL SCREEN 11/29/1955 LDL CHOLESTEROL ANNUAL 11/29/1955 DTAP/TDAP/TD VACCINES (1 - Tdap) 1956 Traditional Medicare (ACO) A nnual Wellness Visit 1954 ZOSTER VACCINE (1 of 2) 11/29/1987 OSTEOPOROSIS SCREENING 2002 RSV VACCINE (60+ or ) (1 - 1-dose 75+ series) 2012 DIABETES ANNUAL RETINAL EXAM 09/20/202201/2022, 05/24/2021, 09/01/2020, Additional history exists INFLUENZA VACCINE (#1) 2024 DIABETES HBA1C Q 6 MONTHS 08/17/20242023, 01/01/2023, 08/28/2022, Additional history exists PNEUMOCOCCAL VACCINE 50+ YEARS Completed 1 , 05/08/2014, 03/15/2014, Additional history exists Procedures Procedure Name Priority Date/Time Associated Diagnosis Comments HEMOGLOBIN A1C Routine 02/18/2024 10:07 AM CDT from Last 3 Months or Most Recently Relevant to Health Maintenance Results * HEMOGLOBIN A1C (02/18/2024 10:07 AM CDT) Blood us Vicente Shen MD CHEMISTRY ORDERABLES Final Resu lt from Last 3 Months or Most Recently Relevant to Health Maintenance Insurance * Guarantor: Bianca Bello Account Type Relation to Patient Date of Phone Billing Address Personal/Family Self 1935 [address] [place] [address] MEDICARE PART A AND B [facility] [facility] [employer] Care Teams Career Services Officer Relationship Specialty Start Date End Date Dejon Segovia MD [address] [place] [address] PCP - General Internal Medicine 06/06/19
--- OUTSIDE RECORDS SUMMARY | 2024-08-23 12:46 | XMS_ITS | Encounter Summary ---
Demographics Address [address] [place] [address] Work Phone Home Phone Mobile Phone Mobile Phone Email Address Email Address Preferred Language Slovenian Marital Status Baptism Affiliation Unknown Race White Ethnic Group Not or Lati no Author Organization [facility] Address [address] [facility] [address] [place] [address] Phone Care Team Providers Care Chief Passenger Ship Steward/Stewardess Name Role Phone Dejon Segovia MD Primary Care Provider Encounter Details Date Type Department Care Team (Latest Contact Info) Description 02/07/2020 Orders Only [facility] Scanning, Provider Social History Tobacco Use Types Packs/Day Years Used Date Smoking Tobacco: Former Smokeless Tobacco: Never Comments Unknown Sex and Gender Information Value Date Recorded Sex Assigned at Not on file Legal Sex Female 6:38 AM GAS PUMPER Gender Identity Not on file Sexual Orientation Not on file documented as of this encounter Plan of Treatment Not on file documented as of this encounter Procedures Procedure Name Priority Date/Time Associated Diagnosis Comments SCAN - LABS 02/07/2020 documented in this encounter Results * SCAN - LABS (02/07/2020) us Provider Scanning Final Result documented in this encounter Visit Diagnoses Not on filedocumented in this encounter Care Teams Chief Passenger Ship Steward/Stewardess Relationship Specialty Start Date End Date Dejon Segovia MD [address] [place] [address] PCP - General 12/22/16 documented as of this encounter
--- OUTSIDE RECORDS SUMMARY | 2024-08-23 12:46 | XMS_ITS | Encounter Summary ---
Demographics Address [address] [place] [address] Work Phone Home Phone Mobile Phone Mobile Phone Email Address Email Address Preferred Language Guinean Marital Status Oriental Orthodox Affiliation Unknown Race White Ethnic Group Not or Lati no Author Organization [facility] Address [address] [facility] [address] [place] [address] Phone Care Team Providers Care Corporate Controller Name Role Phone Dejon Segovia MD Primary Care Provider [phone] Encounter Details Date Type Department Care Team (Latest Contact Info) Description 10/12/2019 Orders Only [facility] Scanning, Provider Social History Tobacco Use Types Packs/Day Years Used Date Smoking Tobacco: Former Smokeless Tobacco: Never Comments Unknown Sex and Gender Information Value Date Recorded Sex Assigned at Not on file Legal Sex Female 6:38 AM SYSTEMS MANAGEMENT CONSULTANT Gender Identity Not on file Sexual Orientation Not on file documented as of this encounter Plan of Treatment Not on file documented as of this encounter Procedures Procedure Name Priority Date/Time Associated Diagnosis Comments SCAN - LABS 10/12/2019 documented in this encounter Results * SCAN - LABS (10/12/2019) us Provider Scanning Final Result documented in this encounter Visit Diagnoses Not on filedocumented in this encounter Care Teams Corporate Controller Relationship Specialty Start Date End Date Dejon Segovia MD [address] [place], [place] [id number] PCP - General 12/22/16 documented as of this encounter
--- OUTSIDE RECORDS SUMMARY | 2024-08-23 12:46 | XMS_ITS | Referral Summary ---
Demographics Address [address] [place] [address] Work Phone Home Phone Mobile Phone Mobile Phone Email Address [email or web address] Email Address Preferred Language Beninese Marital Status Nondenominational Affiliation Unknown Race White Ethnic Group Not or Lati no Author Organization [facility] Address [address] [place] [address] Care Team Providers Care Electrical Drafter Name Role Phone Dejon Segovia MD Primary Care Provider [phone] Allergies No known active allergies Medications ALPRAZolam (XANAX) 0.25 mg tablet 0 8 Active carvedilol (COREG) 25 mg tablet 1.5 tablets (37.5 mg total) 2 times daily 8 Active traZODone (DESYREL) 50 mg tablet daily. Active hydrALAZINE (APRESOLINE) 100 mg tabletIndication s:hypertension Take 1 tablet (100 mg total) by mouth 3 (three) times a day 9 Active folic acid (FOLVITE) 1 mg tablet 9 Active quinapriL (ACCUPRIL) 20 mg tablet Take 1 tablet (20 mg total) by mouth 2 (two) times a day 0 Active atorvastatin (LIPITOR) 80 mg tablet 2 Active famotidine (PEPCID) 20 mg tablet Take 1 tablet (20 mg total) by mouth 2 (two) times a day 3 Active amLODIPine (NORVASC) 2.5 mg tabletIndication s:Essential hypertension Take 1 tablet (2.5 mg total) by mouth daily 90 tablet 1 4 Active cloNIDine (CATAPRES) 0.1 mg tablet TAKE 1 TABLET BY MOUTH IN THE MORNING AND 2 TABLETS IN THE EVENING 4 Active hydrALAZINE (APRESOLINE) 100 mg tablet Active traZODone (DESYREL) 100 mg tablet TAKE 1 TABLET BY MOUTH EVERY DAY AT BEDTIME FOR SLEEPING 4 Active torsemide (DEMADEX) 10 mg tablet Take 2 tablets (20 mg total) by mouth daily 60 tablet 1 4 Active Additional Information Patient taking differently: 10 mgoral Daily, Reported on 03/28/2024 sodium bicarbonate 650 mg tablet Take 1 tablet (650 mg total) by mouth 4 (four) times a day Active Active Problems Patient Care Coordination No te Formatting of this note migh t be different from the original. Referring provider: Dr. Dejon Segovia Ms. Elías Brandon is an 88-year-old with lymphadenopathy. Patient has a history of renal cell carcinoma and is status post left nephrectomy in 2013. Patient also has a history of stage IV/5 CKD. On 11/13/2023 the patient underwent a chest CT without contrast which noted a hyperattenuating slightly heterogeneous mass/lymph node conglomerate in the aortopulmonary window that measures at least 6 cm. This mass appears to be in close proximity to the orifice of the left superior pulmonary vein, possibly extending into it. There is abutment, possibly extension into the left upper lobe pulmonary artery in addition. The vasculature is overall poorly delineated on this noncontrast exam. Patient is scheduled for a PET scan prior to her appointment today. Patient is a former smoker. Problem Noted Date Diagnosed Date Anemia in stage 4 chronic kidney disease 022 Monoclonal gammopathy 07/16/2018 CKD (chronic kidney disease) stage 5, GFR less than 15 ml/min 12/28/2017 Secondary hyperparathyroidism of renal origin Essential hypertension 12/28/2017 Anemia of chronic renal failure 10/31/2013 Hyperkalemia 10/25/2012 Anemia 10/20/2011 Malignant neoplasm of kidney 02/27/2011 Immunizations Immunization Administration Dates Next Due Pneumococcal Conjugate PCV 13 05/08/2014 Pneumococcal Polysaccharide PPV23 03/23/2018 Pneumococcal, Unspecified 03/15/2014,03/24/2012 Social History Tobacco Use Types Packs/Day Years Used Date Smoking Tobacco: Former Smokeless Tobacco: Never Tobacco Cessation:Counseling Given: Not Answered AUDIT-C Answer Date Recorded Q1: How often do you have a drink containing alc ohol? 2-4 times a month 01/11/2024 Q2: How many drinks containi ng alcohol do you have on a typical day when you are drinking? 1 or 2 01/11/2024 Q3: How often do you have si x or more drinks on one occasion? Never 01/11/2024 Personal Safety Answer Date Recorded Have you ever been in or are you currently in a harmful physical or emotional relationship or is someone making you feel afraid or unsafe? Denies 01/11/2024 Comments Unknown Sex and Gender Information Value Date Recorded Sex Assigned at Not on file Legal Sex Female 6:38 AM PLANT MANAGER Gender Identity Not on file Sexual Orientation Not on file Last Filed Vital Signs Vital Sign Reading Time Taken Comments Blood Pressure 155/79 03/28/2024 1:13 PM CDT Pulse 83 03/28/2024 1:13 PM CDT Temperature 36.6 C (97.9 F) 03/28/2024 1:13 PM CDT Respiratory Rate 25 01/11/2024 10:30 AM CDT Oxygen Saturation 96% 01/11/2024 10:30 AM CDT Inhaled Oxygen Concentration - - Weight 59.6 kg (131 lb 6.4 oz) 03/28/2024 1:13 P M CDT Height 152.4 cm (5') 03/28/2024 1:13 PM CDT Body Mass Index 25.66 03/28/2024 1:13 PM CDT Plan of Treatment Not on file Insurance * Guarantor: Elías Brandon Account Type Relation to Patient Date of Phone Billing Address Personal/Family Self 1935 [address] [place] [address] MEDICARE [facility] * Guarantor: Elías Brandon Account Type Relation to Patient Date of Phone Billing Address Personal/Family Self [address] [place] [address] MEDICARE [facility] * Guarantor: Eugenia Elíasmarissa Hernandez Account Type Relation to Patient Date of Phone Billing Address Personal/Family Self [address] [place] [address] Advance Directives For more information, please contact: [phone] * Full Code (Latest Code Status on File) Date Activated Date Inactivated Comments 01/11/2024 8:28 AM 01/12/2024 4:44 AM Care Teams Electrical Drafter Relationship Specialty Start Date End Date Dejon Segovia MD [address] [facility] [address] [place] [address] PCP - General 12/22/16
--- OUTSIDE RECORDS SUMMARY | 2024-08-23 12:46 | XMS_ITS | Patient Health Summary ---
Demographics Address [address] [place] [address] Home Phone Mobile Phone Preferred Language Arabic Marital Status Yazidi Affiliation Unknown Race White Ethnic Group Not or Lati no Author Organization [facility] Address [address] [place] [address] Support Name Relationship Address Phone Shay Bello Spouse [address] [place] [address] Care Team Providers Care Windchill Administrator Name Role Phone Dejon Segovia MD Primary Care Provider [phone] Note from [facility],non-owned Affiliates and Associated Physician Practices is amultiple site organization consisting of ambulatory clinics and hospital sitesin [place], [place], [place] and [place]. This disclosure is being madepursuant to the Care Everywhere program and may not contain all information available regarding this patient. Last updated 18.[facility] Social History Tobacco Use Types Packs/Day Years Used Date Smoking Tobacco: Never Assessed Sex and Gender Information Value Date Recorded Sex Assigned at Not on file Gender Identity Not on file Sexual Orientation Not on file Procedures * DERMATOPATHOLOGY(Performed 03/07/2021) Results * DERMATOPATHOLOGY (03/07/2021 3:33 AM CDT) Case Report Dermatopathology Report Case: [id number] Authorizing Provider: Primo Goldstein MD Collected: 03/07/2021 03:33 AM Ordering Location: [facility] DermPath Lab Received: 03/09/2021 01:53 PM Pathologist: Nikky Purvis MD Specimens: A) - Skin, upper back B) - Skin, left neck 1:28 PM CDT DERMATOPATHOLOGY LABORATORY Final Diagnosis Specimen A. SKIN, upper back: BASAL CELL CARCINOMA, INFILTRATIVE PATTERN (C44.519) Specimen B. SKIN, left neck: BASAL CELL CARCINOMA, NODULAR TYPE (C44.41) 1:28 PM T DERMATOPATHOLOGY LABORATORY Clinical History A: SK vs SCC. B: R/O recurrent BCCA. 1:28 PM CDT DERMATOPATHOLOGY LABORATORY Gross Description Specimen A: Received is one formalin filled container labeled with the patient's name and designated upper back. The specimen consists of a shave biopsy measuring [id number]. Jar 0. Specimen B: Received is one formalin filled container labeled with the patient's name and designated left neck. The specimen consists of a shave biopsy measuring [id number]. Jar 0. 1 1:28 PM CDT DERMATOPATHOLOGY LABORATORY Microscopic Description Specimen A. SKIN, upper back: Within the dermis there are nodular aggregates of basaloid cells associated with fibromyxoid stroma and epithelial-stromal clefts. At the advancing margin of the neoplasm, there are smaller angulated nests that infiltrate the dermis. Specimen B. SKIN, left neck: Within the dermis there are aggregates of basaloid cells with a high nuclear to cytoplasmic ratio and peripheral palisading. 1:28 PM CDT DERMATOPATHOLOGY LABORATORY Disclaimer An external and internal positive and negative controls are appropriate for the histochemical, immunohistochemical and immunofluorescence stain(s) in this case (if any), except where stated explicitly. The performance characteristics of the stain(s) cited in this report were developed and its performance characteristic determined by the Dermatopathology Laboratory at [facility], directed by Dr. Marnie Douglas. These tests need not be, and therefore are not, approved by the [place] Food and Drug Administration. The tests are used for clinical purposes. Billing Codes Specimen Charges Stain Charges 57881 87575 1 1 1 1:28 PM CDT DERMATOPATHOLOGY LABORATORY Embedded Images 1:28 PM CDT DERMATOPATHOLOGY LABORATORY Pathology/Cytology TISSUE SPECIMEN FROM SKIN / Unknown 03/07/2021 3:33 AM CDT 03/09/2021 1:53 PM CDT Miscellaneous samples (specimen) TISSUE SPECIMEN FROM SKIN / Unknown 03/07/2021 3:33 AM CDT 03/09/2021 1:53 PM CDT Primo Goldstein MD LAB - PATHOLOGY/CYTO LOGY ORDERABLES DERMATOPATHOLOGY LABORATORY [facility] - Department of Dermatology [facility] Specialized Medicine [address] [place] [address], [address] [phone] Care Teams Windchill Administrator Relationship Specialty Start Date End Date Dejon Segovia MD [address] [place] [address] PCP - General 03/09/18
--- OUTSIDE RECORDS SUMMARY | 2024-08-23 12:46 | XMS_ITS | Clinical Summary ---
Demographics Address [address] [place] [address] Home Phone Mobile Phone Preferred Language Haitian Marital Status Methodist Affiliation Unknown Race White Ethnic Group Not or Lati no Author Organization [facility] Address [address] [place] [address] Support Name Relationship Address Phone Shay Bello Spouse [address] [place] [address] Care Team Providers Care Balance Bridge Inspector Name Role Phone Dejon Segovia MD Primary Care Provider [phone] Source Comments [facility],non-owned Affiliates and Associated Physician Practices is amultiple site organization consisting of ambulatory clinics and hospital sitesin [place], [place], [place] and [place]. This disclosure is being madepursuant to the Care Everywhere program and may not contain all information available regarding this patient. Last updated 18.[facility] [employer] Social History Tobacco Use Types Packs/Day Years Used Date Smoking Tobacco: Never Assessed Sex and Gender Information Value Date Recorded Sex Assigned at Not on file Gender Identity Not on file Sexual Orientation Not on file Plan of Treatment Health Maintenance Due Date Last Done Comments BONE DENSITY TESTING 1935 MEDICARE AWV 12 MONTHS 1935 DTAP/TDAP/TD VACCINES (1 - Tdap) 1956 PNEUMOCOCCAL VACCINE 50+ (1 of 1 - PCV) 11/29/1987 ZOSTER VACCINE (1 of 2) 11/29/1987 Respiratory Syncytial Virus (RSV) Vaccine Pt: or over 60 yrs (1 - 1-dose 75+ series) 2012 COVID-19 VACCINE ( - 2023-2 5 season) 2024 INFLUENZA VACCINE (#1) 2024 DEPRESSION SCREENING 06/15/2024 HEPATITIS B VACCINE Aged Out No longe r eligible based on patient's age to complete this topic HIB VACCINE Aged Out No longer eligi ble based on patient's age to complete this topic HPV VACCINE Aged Out No longer eligi ble based on patient's age to complete this topic MENINGOCOCCAL (Group B) VACCINE Aged Out No longer eligible based on patient's age to complete this topic MENINGOCOCCAL VACCINE Aged Out No maria de jesus christen eligible based on patient's age to complete this topic Guarantor Name Account Type Relation to Patient Date of Phone Billing Address Bianca Bello Personal/Family Self 1935 [address] [place] [address] Care Teams Balance Bridge Inspector Relationship Specialty Start Date End Date Dejon Segovia MD [address] [place] [address] PCP - General 03/09/18
--- OUTSIDE RECORDS SUMMARY | 2024-08-23 12:46 | XMS_ITS | Encounter Summary ---
Demographics Address [address] [place] [address] Work Phone Home Phone Mobile Phone Mobile Phone Email Address Email Address m Preferred Language Mongolian Marital Status Adventism Affiliation Unknown Race White Ethnic Group Not or Lati no Author Organization [facility] Address [address] [facility] [address] [place] [address] Phone Care Team Providers Care Carpenters Supervisor Name Role Phone Dejon Segovia MD Primary Care Provider [phone] Encounter Details Date Type Department Care Team (Latest Contact Info) Description 01/17/2019 Orders Only [facility] Scanning, Provider Social History Tobacco Use Types Packs/Day Years Used Date Smoking Tobacco: Former Smokeless Tobacco: Never Comments Unknown Sex and Gender Information Value Date Recorded Sex Assigned at Not on file Legal Sex Female 6:38 AM LATIN AMERICAN STUDIES DIRECTOR Gender Identity Not on file Sexual Orientation Not on file documented as of this encounter Plan of Treatment Not on file documented as of this encounter Procedures Procedure Name Priority Date/Time Associated Diagnosis Comments SCAN - RADIOLOGY/IMAGING 01/17/2019 documented in this encounter Results * SCAN - RADIOLOGY/IMAGING (01/17/2019) Anatomical Region Laterality Modality Other us Provider Scanning Final Result documented in this encounter Visit Diagnoses Not on filedocumented in this encounter Care Teams Carpenters Supervisor Relationship Specialty Start Date End Date Dejon Segovia MD [address] [facility] [address] [place] [address] PCP - General 12/22/16 documented as of this encounter
--- OUTSIDE RECORDS SUMMARY | 2024-08-23 12:46 | XMS_ITS | Clinical Summary ---
Demographics Address [address] [place] [address] Work Phone Home Phone Mobile Phone Mobile Phone Email Address [email or web address] Email Address m Preferred Language Malawian Marital Status Restorationist Affiliation Unknown Race White Ethnic Group Not or Lati no Author Organization [facility] Address [address] [place] [address] Care Team Providers Care Emissions Engineer Name Role Phone Dejon Segovia MD Primary Care Provider [phone] Allergies No known active allergies Medications ALPRAZolam [...] Pneumococcal Polysaccharide PPV23 03/23/2018 Pneumococcal, Unspecified 03/15/2014,03/24/2012 Surgical History Surgery Date Site/Laterality Comments FL NEPHRECTOMY W/PRTL URETER ECTOMY W/OPEN RIB RESCJ Nephrectomy Left - 09/2010 (Added by TW Conv) Medical History Medical History Date Comments Urinary incontinence Urinary inc ontinence - (Added by TW Conv) Personal history of other en docrine, nutritional and metabolic disease History of diabetes mellitus - (Added by TW Conv) Personal history of diseases of the blood and blood-forming organs and certain disorders involving the immune mechanism History of anemia - (Added b y TW Conv) Personal history of other di seases of the circulatory system History of hypertension - (A dded by TW Conv) Personal history of other di seases of urinary system History of hematuria - (Adde d by TW Conv) Family History Medical History Relation Name Comments Diabetes Father Family history of diabetes mellitus - (Added by TW Conv) Hypertension Mother Family history of hypertension - (Added by TW Conv) Relation Name Status Comments Father Mother Social History Tobacco Use Types Packs/Day Years [...] on file Legal Sex Female 6:38 AM AGED OR DISABLED CARER Gender Identity Not on file Sexual Orientation Not on file Obstetrics History Last Filed Vital Signs Vital Sign Reading [...] 03/28/2024 1:13 PM CDT Plan of Treatment Health Maintenance Due Date Last Done Comments Depression Screening 1935 DTaP/Tdap/Td Vaccine (1 - Tdap) 1948 Hepatitis B Screening 11/29/1955 Zoster Vaccine (1 of 2) 11/29/1987 Well Visit 65+ 2002 Influenza Vaccine (#1) 2024 8, 02/23/2017, 03/06/2016, Additional history exists Fall Risk Assessment 01/10/2025 01/11/2024 Pneumococcal vaccine 65+ Completed 018, 05/08/2014, 03/15/2014, Additional history exists Insurance * Guarantor: Elías Brandon Account Type Relation to Patient Date of Phone Billing Address Personal/Family Self 1935 [address] [place] [address] MEDICARE PENDING SALE TO [facility] * Guarantor: Elías Brandon Account Type Relation to Patient Date of Phone Billing Address Personal/Family Self 1935 [address] [place] [address] MEDICARE PENDING SALE TO [facility] * Guarantor: EugeniaElías Account Type Relation to Patient Date of Phone Billing Address Personal/Family Self 1935 [address] [place] [address] Advance Directives For more information, please contact: [phone] * Full Code (Latest Code Status on File) Date Activated Date Inactivated Comments 01/11/2024 8:28 AM 01/12/2024 4:44 AM Care Teams Emissions Engineer Relationship Specialty Start Date End Date Dejon Segovia MD [address] [facility] [address] [place] [address] PCP - General 12/22/16
--- OUTSIDE RECORDS SUMMARY | 2024-08-23 12:47 | XMS_ITS | Encounter Summary ---
Demographics Address [address] [place] [address] Home Phone Mobile Phone Preferred Language Gabonese Marital Status Yazidi Affiliation Unknown Race White Ethnic Group Not or Lati no Author Organization [facility] Address [address] [place] [address] Support Name Relationship Address Phone Shay Bello Spouse [address] [place] [address] Care Team Providers Care Salvage Supervisor Name Role Phone Dejon Segovia MD Primary Care Provider [phone] Encounter Details Date Type Department Care Team (Late st Contact Info) Description 03/09/2021 Lab Requisition [facility] [address] [place] [id number] Primo Goldstein MD [address] [place] [address] Social History Tobacco Use Types Packs/Day Years Used Date Smoking Tobacco: Never Assessed Sex and Gender Information Value Date Recorded Sex Assigned at Not on file Gender Identity Not on file Sexual Orientation Not on file documented as of this encounter Plan of Treatment Not on file documented as of this encounter Procedures Procedure Name Priority Date/Time Associated Diagnosis Comments DERMATOPATHOLOGY Routine 03/07/2021 3:33 AM CDT documented in this encounter Results * DERMATOPATHOLOGY (03/07/2021 3:33 AM CDT) Case Report Dermatopathology Report Case: [id number] Authorizing Provider: Primo Goldstein MD Collected: 03/07/2021 03:33 AM Ordering Location: [facility] Received: 03/09/2021 01:53 PM Pathologist: [...] specimen consists of a shave biopsy measuring [id number]. Jar 0. Specimen B: Received is one formalin filled container labeled with the patient's name and designated left neck. The specimen consists of a shave biopsy measuring [id number]. Jar 0. 1:28 PM CDT DERMATOPATHOLOGY LABORATORY Microscopic Description [...] characteristic determined by the Dermatopathology Laboratory at [facility], directed by Dr. Marnie Douglas. These tests need not be, and therefore are not, approved by the [place] Food and Drug Administration. The tests are used for clinical purposes. Billing Codes Specimen Charges Stain Charges 12526 38287 1 1 1 1:28 PM CDT DERMATOPATHOLOGY LABORATORY Embedded Images 1:28 PM CDT DERMATOPATHOLOGY LABORATORY Pathology/Cytology TISSUE SPECIMEN FROM SKIN / Unknown 03/07/2021 3:33 AM CDT 03/09/2021 1:53 PM CDT Miscellaneous samples (specimen) TISSUE SPECIMEN FROM SKIN / Unknown 03/07/2021 3:33 AM CDT 03/09/2021 1:53 PM CDT Primo Goldstein MD LAB - PATHOLOGY/CYTO LOGY ORDERABLES DERMATOPATHOLOGY LABORATORY [facility] - Department of Dermatology [facility] Medicine [address] [place] [address], [address] [phone] documented in this encounter Visit Diagnoses Not on filedocumented in this encounter Care Teams Salvage Supervisor Relationship Specialty Start Date End Date Dejon Segovia MD [address] [place] [address] PCP - General 03/09/18 documented as of this encounter
--- OUTSIDE RECORDS SUMMARY | 2024-08-23 12:47 | XMS_ITS | Encounter Summary ---
Author Organization [facility] HANSA Parkinson [facility] Address [address] [place] [address] Care Team Providers Care Sales And Marketing Executive Name Role Phone Dejon Segovia MD Primary Care Provider + Encounter Details Date Type Department Care Team (Late st Contact Info) Description 08/22/2024 Orders Only [facility] Oncology and Hematology - Serge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
--- OUTSIDE RECORDS SUMMARY | 2024-08-23 12:47 | XMS_ITS | CONTINUITY OF CARE DOCUMENT ---
Demographics Address [address] [place] [address] Home Phone [phone] Email Address None Preferred Language en Marital Status Islam Affiliation Unknown Race White Ethnic Group Not or Lati no Author Name mai oneill Address Unknown Organization [facility] Address [address] [place] [address] Phone [phone] Care Team Providers Care Washroom Attendant Name Role Phone Sarthak Ortega MD Unavailable BRITTANIE JOHNSON MD Unavailable BRITTANIE JOHNSON MD Unavailable PROBLEMS Condition Status Date Provider Notes Metabolic acidosis active Tanya Oh Chronic kidney disease, unspecified active Tanya Oh Anemia active Horacio Zaragoza MD Paraproteinemia active Horacio Zaragoza MD CKD stage 4 (gfr 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 Horacio burk MD Diabetes mellitus type II active Horacio arias MD Renal cell carcinoma, left k idney s/p radical nephrectomy active Horacio Zaragoza MD ENCOUNTERS Date Type Provider Location Encounter Diag nosis - In-person encounter Office Visit Horacio Zaragoza MD [facility] - In-person encounter Office Visit Horacio Zaragoza MD [facility] AnemiaParaproteinemiaCKD stage 4 (gfr 15-29)Diabetes mellitus type IIRenal cell carcinoma, left kidney s/p radical nephrectomy VITAL SIGNS Date Observation Value Provider blood pressure, diastolic 88 mm[Hg] Carlos Pacheco blood pressure, systolic 163 mm[Hg] Fabiana Pacheco pulse rate 84 /min Javier perry oxygen saturation, oximetry 96 % Javier Pacheco respiratory rate E&M 18 /min Erika Pacheco Body Mass Index (Ratio) 34.45 kg/m2 Cari Pacheco weight E&M 176.4 [lb_av] Javier johnson blood pressure, diastolic 93 mm[Hg] Carlos Pacheco blood pressure, systolic 179 mm[Hg] Fabiana Pacheco pulse rate 83 /min Javier perry oxygen saturation, oximetry 96 % Javier Pacheco respiratory rate E&M 18 /min Eriak Pacheco Body Mass Index (Ratio) 33.86 kg/m2 Cari Pacheco weight E&M 173.4 [lb_av] Javier johnson height E&M 60 [in_i] Javier perry ALLERGIES No Known Drug Allergies RESULTS Date Observation Value Provider Reference Range Interpretation Location Nitrite Urine Negative [facility] Negative urobilinogen, urine 0.2 E.U./dL mg/dl [facility] 0.2 - 1.0 specific gravity, urine 1.015 [facility] 1.001 - 1.035 KETONES, URINE Negative [facility] Negative bilirubin, urine Negative [facility] Negative Glucose Urine Negative [facility] Negative clarity, urine, point Clear [facility] Yellow urine color Yellow [facility] yellow to matteo trichomonas vaginalis, urine None seen [facility] urine crystals, microscopic None seen [facility] casts, urine, microscopic None seen [facility] mucus on urinalysis None seen [facility] Not Estab. bacteria, urine microscopy Moderate [facility] None seen / Few epithelial cells, urine 1 - 10 / lpf [facility] 0 - 10 /lpf (non renal) RBC urine by microscopy 0 - 3 /hpf [facility] 0 - 3 /hpf WBC urine on microscopy 0 - 5 /hpf [facility] 0 - 5 /hpf red blood cell distribution width, size density 47.8 fL [facility] - immature granulocytes, percentage of total cells, blood 0.3 % [facility] - nucleated red blood cells as percent of blood leukocytes 0.0 % [facility] - red blood cell (erythrocyte) count, per high power field 0.0 10*3/UL [facility] - eosinophils as percent of blood leukocytes 1.9 % [facility] - neutrophils as percent of blood leukocytes 57.6 % [facility] - Absolute Neutrophils 4.6 CELLS/UL [facility] 1.5 - 7.8 basophils as percent of blood leukocytes 0.5 % [facility] - Absolute Basophils 0.0 CELLS/UL [facility] 0.0 - 0.2 monocytes as percent of blood leukocytes 8.2 % [facility] - Absolute Monocytes 0.7 CELLS/UL [facility] 0.2 - 1.0 lymphocytes as percent of blood leukocytes 31.5 % [facility] - Absolute Lymphocytes 2.5 CELLS/UL [facility] 0.9 - 3.9 mean platelet volume 12.2 (?) [facility] - platelet count 299.0 THOUSAND/UL [facility] 100.0 - 400.0 mean corpuscular hemoglobin concentration, RBC 30.2 G/DL [facility] 31.0 - 38.0 Low mean corpuscular hemoglobin, RBC 28.4 pg [facility] 25.0 - 35.0 mean corpuscular volume, RBC 94.1 fL [facility] 75.0 - 100.0 hematocrit, blood 34.8 % [facility] 35.0 - 55.0 Low hemoglobin, blood 10.5 g/dL [facility] 11.5 - 16.5 Low erythrocyte count, whole blood 3.7 MILLION/UL [facility] 3.5 - 5.5 urea nitrogen/creatinine ratio, serum 18.3 [facility] - Estimated Glomerular Filtration Rate (calc) 21.9 (?) [facility] 59.0 - Low chloride, serum 101.6 mmol/L [facility] 98.0 - 107.0 potassium, serum 4.8 mmol/L [facility] 3.5 - 5.1 sodium, serum 141.0 mmol/L [facility] 136.0 - 145.0 creatinine, serum 2.3 mg/dL [facility] 0.5 - 0.9 High carbon dioxide, venous blood 25.0 mmol/L [facility] 23.0 - 31.0 calcium, serum 10.5 mg/dL [facility] 8.6 - 10.2 High urea nitrogen, blood 42.0 mg/dL [facility] 8.0 - 23.0 High blood glucose, random 115.0 mg/dL [facility] 74.0 - 99.0 High red blood cell distribution width, size density 46.7 fL [facility] - immature granulocytes, percentage of total cells, blood 0.1 % [facility] - nucleated red blood cells as percent of blood leukocytes 0.0 % [facility] - red blood cell (erythrocyte) count, per high power field 0.0 10*3/UL [facility] eosinophils as percent of blood leukocytes 1.9 % [facility] - neutrophils as percent of blood leukocytes 59.6 % [facility] - Absolute Neutrophils 4.5 CELLS/UL [facility] 1.5 - 7.8 basophils as percent of blood leukocytes 0.4 % [facility] - Absolute Basophils 0.0 CELLS/UL [facility] 0.0 - 0.2 monocytes as percent of blood leukocytes 9.2 % [facility] - Absolute Monocytes 0.7 CELLS/UL [facility] 0.2 - 1.0 lymphocytes as percent of blood leukocytes 28.8 % [facility] - Absolute Lymphocytes 2.2 CELLS/UL [facility] 0.9 - 3.9 mean platelet volume 11.5 (?) [facility] - platelet count 342.0 THOUSAND/UL [facility] 100.0 - 400.0 mean corpuscular hemoglobin concentration, RBC 31.0 G/DL [facility] 31.0 - 38.0 mean corpuscular hemoglobin, RBC 29.2 pg [facility] 25.0 - 35.0 mean corpuscular volume, RBC 94.4 fL [facility] 75.0 - 100.0 hematocrit, blood 32.3 % [facility] 35.0 - 55.0 Low hemoglobin, blood 10.0 g/dL [facility] 11.5 - 16.5 Low erythrocyte count, whole blood 3.4 MILLION/UL [facility] 3.5 - 5.5 Low iron binding capacity, unsaturated 196.0 ??G/DL [facility] 112.0 - 347.0 ferritin, serum 807.2 ng/mL [facility] 13.0 - 150.0 High iron binding capacity, total 270.0 (?) [facility] - iron, serum 74.0 ug/dL [facility] 25.0 - 156.0 anion gap, serum 18.5 [facility] - albumin/globulin ratio, serum 3.0 g/dL [facility] 1.1 - 2.5 High globulin, serum 3.2 [facility] 2.3 - 3.8 urea nitrogen/creatinine ratio, serum 19.5 [facility] - Estimated Glomerular Filtration Rate (calc) 24.3 (?) [facility] 59.0 - Low chloride, serum 99.5 mmol/L [facility] 98.0 - 107.0 potassium, serum 4.6 mmol/L [facility] 3.5 - 5.1 sodium, serum 141.0 mmol/L [facility] 136.0 - 145.0 creatinine, serum 2.1 mg/dL [facility] 0.5 - 0.9 High carbon dioxide, venous blood 23.0 mmol/L [facility] 23.0 - 31.0 albumin, serum 4.9 g/dL [facility] 3.5 - 5.2 calcium, serum 11.0 mg/dL [facility] 8.6 - 10.2 High aspartate aminotransferase (SGOT), serum 21.0 1/L [facility] 0.0 - 32.0 alkaline phosphatase, serum 111.0 1/L [facility] 40.0 - 130.0 alanine aminotransferase (SGPT), serum 18.0 1/L [facility] 0.0 - 33.0 protein, total, serum 8.1 g/dL [facility] 6.6 - 8.7 urea nitrogen, blood 41.0 mg/dL [facility] 8.0 - 23.0 High blood glucose, random 117.0 mg/dL [facility] 74.0 - 99.0 High bilirubin, serum, total 0.3 mg/dL [facility] 0.0 - 1.2 HISTORY OF MEDICATION USE Medication Status Instructions Dates Provider Indications Com ments DIAZEPAM 5 MG ORAL TABLET active Take 1 tablet 30 minutes prior to procedure. Alyssa Kohli RN FISH OIL CONCENTRATE 1000 MG ORAL CAPSULE active One tab. daily Javier Pacheco FUROSEMIDE 20 MG ORAL TABLET active once daily Javier Pacheco TRADJENTA 5 MG ORAL TABLET active once daily Javier Pacheco OMEPRAZOLE 40 MG ORAL CAPSULE DELAYED RELEASE active as needed Javier Pacheco CALCITRIOL 0.25 MCG ORAL CAPSULE active every other day Javier Pacheco TRAZODONE HCL TABLET active 50 mg once daily Javier Pacheco ATORVASTATIN CALCIUM 40 MG ORAL TABLET active once daily Javier Pacheco SODIUM BICARBONATE TABLET active 650 mg 4 tabs daily Javier Pacheco NORVASC 10 MG ORAL TABLET active ONE TAB. DAILY Javier Pacheco COREG 25 MG ORAL TABLET active ONE TAB. DAILY Javier Pacheco QUINAPRIL HCL 40 MG ORAL TABLET active ONE TAB. DAILY Javier Pacheco SOCIAL HISTORY Date Observation Value Provider social history reviewed E&M revi ewed - no changes required Horacio Zaragoza MD cigarette use yes Javier johnson smoking status Former smoker Javier Peralta cigarette use yes Horacio Zaragoza MD smoking status Former smoker Horacio burk MD social history reviewed E&M revi ewed - no changes required Horacio Zaragoza MD social history E&M Alcohol Use - no D rug Use - no Smoking History: Erin vargas is a former smoker. Horacio Zaragoza MD FAMILY HISTORY Family Member Condition Father Family History of Di abetes INSURANCE PROVIDERS Payer name Policy type / Coverage type [place] red republican ID [facility] [id number] [place] Medicare [id number] TREATMENT PLAN Date Name Performer Hem/Onc:Recheck CBC and iron stores. Orders: C BC (INCLUDES DIFF/PLT) (6399) C OMPREHENSIVE METABOLIC PANEL W/EGFR (21374) K APPA LIGHT CHAIN, FREE (88681) L AMBDA LIGHT CHAIN, FREE (13759) E LECTROPHORESIS AND IMMUNOFIXATION, SERUM WITH TRACING (07955) F ERRITIN (457) I JAIR AND TOTAL IRON BINDING CAPACITY (7573) 9 9204 MOD Complex ([id number]) Horacio Zaragoza MD Hem/Onc:The patient has a normal globulin fraction. I will check a SPEP, Serum immunofixation and serum free light chains. This will have an 97-98% sensitivity in picking up a moncolonal paraprotein. If a monoclonal paraprotein is noted, further work up and follow up will be arranged. O rders: 9 9204 MOD Complex (CPT-[id number]) Horacio Zaragoza MD Date Name PROTEIN, TOTAL, RAND OM URINE (W/ CREATININE) URINALYSIS, MICROSCO PIC URINALYSIS, MACROSCO PIC PTH, INTACT (WITHOUT CALCIUM) BASIC METABOLIC PANE L W/EGFR KAPPA LIGHT CHAIN, T OTAL, RANDOM URINE Immunoglobulin A, qu ant, serum Immunoglobulin G, Qu ant, Serum Immunoglobulin M, Qu ant, Serum LAMBDA LIGHT CHAIN, FREE KAPPA LIGHT CHAIN, F REE ELECTROPHORESIS AND IMMUNOFIXATION, SERUM WITH TRACING CBC (INCLUDES DIFF/P LT) KAPPA/LAMBDA LIGHT C HAINS TOTAL, RANDOM URINE LAMBDA LIGHT CHAIN, FREE ELECTROPHORESIS AND IMMUNOFIXATION, SERUM WITH TRACING CBC (INCLUDES DIFF/P LT) KAPPA/LAMBDA LIGHT C HAINS TOTAL, RANDOM URINE Immunoglobulin M, Qu ant, Serum Immunoglobulin G, Qu ant, Serum Immunoglobulin A, qu ant, serum LAMBDA LIGHT CHAIN, FREE KAPPA LIGHT CHAIN, F REE ELECTROPHORESIS AND IMMUNOFIXATION, SERUM WITH TRACING CBC (INCLUDES DIFF/P LT) Beta-2 microglobulin Skeletal Survey Protein Total, Qn, 2 4-Hr Urine ELECTROPHORESIS, PRO TEIN 24-HOUR URINE AND IMMUNOFIXATION STUDIES Beta-2 microglobulin IRON AND TOTAL IRON BINDING CAPACITY FERRITIN ELECTROPHORESIS AND IMMUNOFIXATION, SERUM WITH TRACING LAMBDA LIGHT CHAIN, FREE KAPPA LIGHT CHAIN, F REE COMPREHENSIVE METABO LIC PANEL W/EGFR CBC (INCLUDES DIFF/P LT) HISTORY OF PROCEDURES Procedure Date Procedure Name Provider Procedure Notes S tatus SNOMED-CT: 692569874 [id number] Current Medications Documented Horacio aZragoza MD completed SNOMED-CT: 712895874 526322 Current Medications Documented Horacio Zaragoza MD completed
--- OUTSIDE RECORDS SUMMARY | 2024-08-23 12:47 | XMS_ITS ---
Demographics Address [address] [place] [address] Work Phone Home Phone Mobile Phone Mobile Phone Email Address Email Address m Preferred Language Malaysian Marital Status Mandaeism Affiliation Unknown Race White Ethnic Group Not or Lati no Author Organization [facility] Address [address] [place] [address] Care Team Providers Care Laborer Stores Name Role Phone Dejon Segovia MD Primary Care Provider [phone] Active Problems Patient Care Coordination No te Formatting of this note migh t be different from the original. Referring provider: Dr. Dejon Segovia Ms. Bianca Bello is an 88-year-old with lymphadenopathy. Patient has [...] Anemia 10/20/2011 Malignant neoplasm of kidney 02/27/2011 Current Treatment and Therapy Plans No current plan information found. Past Treatment and Therapy Plans Lifetime Dose Tracking * Chemical Lifetime Dose Automatic Entry Manual Entr y DLP 274 mGycm 274 mGycm 0 mGycm
== END 2024-08-23 11:02 | disposition home or self-care (01) ==
LOC: ANHIMG 11:03
PROVIDERS: PCP Internal Medicine; Visit Provider Radiology Radiation Oncology
DX: C34.82 Malignant neoplasm of overlapping sites of left bronchus and lung (principal); C79.51 Secondary malignant neoplasm of bone; M89.562 Osteolysis, left lower leg; M25.872 Other specified joint disorders, left ankle and foot; C50.919 Malignant neoplasm of unspecified site of unspecified female breast
CPT/HCPCS: 73590

== ENCOUNTER 2024-09-13 13:30 | Outpatient (RCR) | payer MEDICARE, SELFPAY ==
[2024-02-05 09:04] VITALS: BMI 26.0
[2024-02-05 09:05] VITALS: BP 170/76; PULSE 88; TEMP 36.9; O2SAT 98
--- NOTE | 2024-02-05 12:20 | P.CONRAD_ITS ---
[facility] - Date/Time Seen 02/05/24 12:20 - History of Present Illness RADIATION ONCOLOGY CONSULTATION DOS: 02/05/2024 Diagnosis: Clinical and radiographic evidence of malignancy in thorax New Patient History of Present Illness/Review and Summary of Existing Medical Records: Bianca Bello is a 88 y.o. new patient who is seen today in [facility] Radiation Oncology at the request of Dr. Shen to be evaluated and discuss radiation treatment options for her diagnosis of recurrent renal cell cancer. Information pertinent to this evaluation is as follows: 88 y/o F Prior 35 pack year smoking history, quit 50 years ago Prior left renal cell cancer s/p nephrectomy in 2013. She has CKD stage V She presented with upper respiratory symptoms CT imaging showed a large left hilar mass. She was evaluated by CT surgery Dr. Chavez who felt this likely recommended malignancy. He coordinated staging imaging and wanted to obtain a tissue diagnosis. MR brain w/o contrast was negative (limited by lack of contrast) PET/CT shows a PET-avid, centrally necrotic LN conglomerate in the AP window abutting aortic arch and left PA. There was focal uptake in left retrosternal region that was indeterminate. No other clear sites of disease. She was referred for biopsy by radiology at [place], but was not a candidate. She was referred to [facility]. She was set-up for biopsy with IR, however the procedure was aborted as there was no clear window. She was referred back to CT surgery for surgical biopsy, but the patient and her family declined. She was referred to me for consideration of RT. Bianca Bello presents to the radiation oncology clinic today for formal consultation. She is accompanied in clinic today by her daughter. She feels generally well, no complaints. Review of Systems: See HPI. Past Medical/Surgical History No prior history of radiotherapy No history of active collagen vascular disease including scleroderma No implanted pacemaker or defibrillator Past Medical History Past Medical History: Diagnosis Date ? Anemia ? Diabetes ? HTN (hypertension) ? Hyperlipidemia ? Malignant neoplasm of trachea, bronchus, and lung Past Surgical History Past Surgical History: Procedure Laterality Date ? HX HERNIA REPAIR Bilateral 2009 ? HX KIDNEY SURGERY Bilateral 2011 patient had cancer removed from kidney Social History She reports that she has never smoked. She has never used smokeless tobacco. She reports that she does not drink alcohol and does not use drugs. Family History family history includes Cancer in her brother; Diabetes in her father; Heart Disease in her father. Allergies No IV contrast or iodine allergy Allergies No Known Allergies Medications Current Medications Current Outpatient Medications Medication Sig Dispense Refill ? famotidine (PEPCID) 40 mg tablet ? fsqkaxod-lkfdywxjf-yjdhpvgqvwyny (MAXITROL) 3.5mg/mL-10,000 unit/mL-0.1 % suspension INSTILL 1 DROP INTO RIGHT EYE THREE TIMES A DAY SHAKE WELL ? quinapriL (ACCUPRIL) 20 mg tablet Take 20 mg by mouth 2 times daily. ? sodium bicarbonate 650 mg tablet Take 650 mg by mouth. ? furosemide (LASIX) 20 mg tablet ? glimepiride (AMARYL) 2 mg tablet Take 2 mg by mouth daily with breakfast. ? cloNIDine HCL (CATAPRES) 0.1 mg tablet Take 0.1 mg by mouth 2 times daily. ? traZODone (DESYREL) 50 mg tablet ? quinapril (ACCUPRIL) 40 mg tablet ? hydrALAZINE (APRESOLINE) 100 mg Tablet tablet ? folic acid (FOLVITE) 1 mg tablet ? carvedilol (COREG) 25 mg tablet ? atorvastatin (LIPITOR) 80 mg tablet ? ALPRAZolam (XANAX) 0.25 mg tablet ? omega-3 fatty acids-fish oil 300-1,000 mg Capsule Take by mouth daily. No current facility-administered medications for this visit. Physical Exam Vital signs: see RN note ECOG: (1) Restricted in physically strenuous activity, ambulatory and able to do work of light nature General Appearance: The patient is a well-developed, well-nourished female, sitting, in no acute distress. Eyes: EOMI. Sclerae are anicteric. ENMT: Mucous membranes are moist. The oropharynx is clear. Respiratory: Breathing comfortably at rest without wheeze Musculoskeletal: No tenderness to percussion over the spine. Extremities: There is no clubbing, cyanosis, or edema. Radiology Review: I personally reviewed the available images from the radiologic examinations noted above in the HPI, with the findings as noted above. Laboratory Review: reviewed Histopathology: N/A Diagnosis: 88 y/o F with prior 35 pack year smoking history, quit 50 years ago; Prior left renal cell cancer s/p nephrectomy in 2013; CKD stage V. She now presents with a PET-avid, centrally necrotic LN conglomerate in the AP window abutting aortic arch and left PA. There was focal uptake in left retrosternal region that was indeterminate. No other clear sites of disease. Concern that this may represent recurrent kidney cancer, new primary lung cancer, or some other malignant process. She is not a candidate for IR biopsy and is refusing surgical biopsy with CT surgery. Referred for consideration of RT. Plan: 1. I reviewed her work-up and staging. I do agree that tissue diagnosis would be helpful. She is not interested in pursuing a surgical biopsy of her tumor. I explained that this may guide therapy options including potential systemic therapy options. 2. I do think she would be a candidate for radiation therapy. Given the location of the mass. I am concerned about the risk that further progression could cause erosion into the pulmonary artery or aorta, which could lead to fatal bleeding. One goal of therapy would be to shrink the tumor and decrease this risk. We discussed that radiation does increase the risk of vascular toxicity as well, but I believe that risk is much lower than the risk of bleeding w/o any local therapy and continued tumor progression. I would likely treat with 60Gy/15 Fx given the central location using IMRT. 3. We discussed that although LC would be expected to be excellent within the region of the treatment field, that there would be a continued risk for subclinical metastasis to become evident in other locations. I described the expected outcomes of the proposed radiation treatment course, as well as the simulation procedure, treatment process, possible acute side effects, and long- term risks of treatment. As thoracic organs move with respiration, treatment planning would include a 4DCT simulation to map the tumor motion with breathing. I would anticipate a 15 fraction course of SBRT, delivered 5 times per week, over a 30week duration. 4. The acute side effects may include but not limited to painful swallowing, localized skin redness/tanning/soreness, fatigue, and exacerbation of cough. Late risks may include, among other things, esophageal ulceration/perforation/fistula, radiation pneumonitis, bronchial stricture with resulting lung collapse, bronchial fistula, vascular perforation which would be life threatening, heart damage, a very small chance of injury to the spinal cord/nerves, which could result in permanent lower extremity weakness, numbness, and/or paralysis. Written consent was obtained today. 5. She will RTC 02/09/[address] simulation. Ms. Bello is noted to have 0/10 pain in clinic today. Her individualized pain management will therefore consist of no intervention needed as the patient notes no pain of significance. Thank you for the opportunity to participate in Ms. Bello's care. Please do not hesitate to contact me if I can provide any additional assistance. Brayden Chao MD I spent 60 minutes on visit today, including chart review, time with patient, documentation, and coordination of care. - Medical History Medical History (Last Reviewed 11/16/23 @ 08:47 by Yuliet Matias CMA) Abdominal pain Acute kidney injury superimposed on CKD Acute pancreatitis Anemia Anemia was evaluated in August [address] Hobson. Colonoscopy was unremarkable. Upper endoscopy showed a 4 mm nodular region at the gastroesophageal junction, which was found to be consistent with benign acute ulcer on histology. Anemia of chronic disease Anxiety with depression Benign essential hypertension BMI 27.0-27.9,adult BMI 28.0-28.9,adult BMI 29.0-29.9,adult BMI 30.0-30.9,adult Body mass index 33.0-33.9, adult Onset Date: 03/08/18 Cataract Cerumen impaction CKD (chronic kidney disease) She is followed by Dr. Mejia. GFR is around 15%. Creatinine has been between 2.99 and 3.50 recently. Cough Diarrhea DM type 2 (diabetes mellitus, type 2) Dyspepsia Dysphagia Elevated homocysteine Encounter for Medicare annual wellness exam Encounter for routine adult health examination with abnormal findings Encounter for routine adult health examination without abnormal findings Follow up Gastroenteritis GERD (gastroesophageal reflux disease) Hx of renal cell cancer Hyperlipidemia Insomnia Mixed hyperlipidemia Nausea Obstructive sleep apnea on CPAP On bed bug exterminator drug therapy Sinus drainage Torticollis URI (upper respiratory infection) - Surgical History Surgical History (Last Reviewed 11/16/23 @ 08:47 by Yuliet Matias CMA) History of hernia repair History of left nephrectomy Per Dr. Mendez January 25, 2011. - Family History Family History (Last Reviewed 11/16/23 @ 08:47 by Yuliet Matias CMA) Sibling Family history of primary malignant neoplasm of liver Father Family history of diabetes mellitus in first degree relative Diabetes mellitus Mother Family history of heart disease in male family member before age 55 Other Cerebrovascular accident Family history of cardiovascular disease - Social History Social History (Last Reviewed 11/16/23 @ 08:47 by Yuliet Matias CMA) Gender Identity: Gender identity (if verbalized by the patient): Female Alcohol Use: Alcohol intake: never Substance Use: Substance use: never Others: Spiritual care concerns: No Agree to blood products: Yes Smoking Status: Smoking status: Former smoker Tobacco type: cigarettes Second hand tobacco smoke exposure: Yes Smoking end date: 06/15/79 Smoking Pack-years: Smoking packs per day: 1 Smoking cigarettes per day: 20.0 Years smoked: 3 Smoking pack-years: 3.00 Social Determinants of Health: Has the Lack of Transportation Kept You From Medical Appointments or From Getting Medications?: No Within the Past 12 Months, Were You Worried Whether Your Food Would Run Out Before You Got Money to Buy More?: Never True What is Your Housing Situation Today?: I Have Housing Are You Worried That in the Next 2 Months, You May Not Have Your Own Housing to Live In?: No Do You Have Trouble Paying Your Heating Or Electricity Bill?: No Do You Have Trouble Paying For Medicines?: No Are You Currently Unemployed and Looking for Work?: No Highest Level of Education Completed: High School Diploma/GED Do You Have Trouble With Childcare or the Care of a Family Member?: No - Allergies Allergies Allergy/AdvReac Type Severity Reaction Status Date / Time No Known Allergies Allergy Verified 02/05/24 09:05 Exam - Vital Signs Vital Signs - 24 hr 02/05/24 09:05 Temperature 36.9 C Pulse Rate 88 Blood Pressure 170/76 H Pulse Oximetry 98
--- NOTE | 2024-02-09 10:43 | WPDONCRADTXP ---
Radiation Treatment Plan - Date/Time Date/Time: 02/09/24 10:43 - Summary Summary: CLINICAL TREATMENT PLAN PATIENT NAME: Bianca Bello PROCEDURE DATE: 02/09/2024 DIAGNOSIS: Lung Cancer TREATMENT INTENT: Definitive SPECIAL TEST(S) INTERPRETED FOR TUMOR DELINEATION: PET/CT CHEMOTHERAPY CONSIDERATIONS: None TREATMENT SITE(S): Left upper lobe Mediastinum NUMBER OF AREAS OR SALDIVAR: 1 treatment area NUMBER OF TREATMENT PORTS: IMRT using multiple static gantry angles, arcs, or helical tomotherapy will be needed to cover the treatment volume and adequately protect nearby critical normal tissues. The number of ports will be determined during the treatment planning process. IMMOBILIZATION: Alphacradle TREATMENT DEVICES: Custom blocks of complex design TREATMENT MODALITY: External photon beam PLANNED DOSE: 6000 cGy in 15 fractions FRACTIONATION: Daily TECHNIQUE CONTEMPLATED: IMRT MEDICAL NECESSITY FOR IMRT TREATMENT PLANNING The target volume is in close proximity to critical normal structures (heart, esophagus, uninvolved lung) and must be treated with narrow margins to adequately protect immediately adjacent structures in order to reduce the probability of radiation toxicity. The dose required to deliver to the target volume may exceed the tolerance of these adjacent normal structures, which are so close that IMRT is the only treatment modality that can achieve this, as opposed to conventional 3D-treatment planning. MEDICAL NECESSITY FOR IGRT TREATMENT PLANNING The target volume has inherent setup variation as a result of respiratory motion. IGRT is the only treatment modality that can correct for daily variances in target volume location, further improving the therapeutic ratio over IMRT alone. Brayden Chao MD
--- NOTE | 2024-02-09 10:44 | P.RAD.PCN_ITS ---
Radiation Procedure Note - Date/Time Date/Time: 02/09/24 10:44 - Summary Summary: Procedure Date: 02/09/[address] SIMULATION PROCEDURE / 35921 PURPOSE: The patient is undergoing a virtual CT simulation for external beam radiation treatment planning. Today?s 4D-CT dataset will be utilized for intensity modulated treatment planning (IMRT). TREATMENT SITE(S): AMBERLY lung Mediastinum NUMBER OF AREAS OR SALDIVAR: One treatment area was simulated today. NUMBER OF PORTS: IMRT using multiple static gantry angles, arcs, or helical tomotherapy will be needed to cover the treatment volume and adequately protect nearby critical normal tissues. The number of ports will be determined during the treatment planning process. EQUIPMENT USED: Simulation was performed on the department?s dedicated CT simulator. IMMOBILIZATION: An alpha cradle device was fabricated to immobilize the patient?s body in treatment position. CONTRAST MEDIA: The use of contrast was not required for this simulation. EXTERNAL MARKERS: No external markers were used. TATTOOS: Positioning tattoos were applied to the patient?s skin BLOCKING: An intensity map generated by multiple MLC-shaped beamlets of complex design will be constructed as part of an IMRT treatment plan. COMPENSATING FILTER / WEDGE: None ISODOSE PLAN: An IMRT treatment plan will be performed to precisely deliver a specified dose to the treatment volume with narrow margins and to protect adjacent critical normal tissues from receiving excessive radiation exposure. SCHEDULING Prior to delivering the first radiation fraction, a verification simulation will be performed on the linear accelerator to verify the isocenter location. DAILY IMAGE GUIDANCE: Utilizing the integrated CT scanner on the treatment machine, CT images through the treatment volume will be acquired daily prior to treatment to ensure precise patient positioning, thus allowing treatment of the tumor with narrow margins. MEDICAL NECESSITY FOR IMRT TREATMENT PLANNING: Dose escalation is planned to deliver radiation doses in excess of those c ommonly utilized with conventional treatments. The target volume is in close proximity to critical normal structures (lung, spinal cord, heart, esophagus) and must be treated with narrow margins to adequately protect immediately adjacent structures in order to reduce the probability of radiation toxicity. IMRT is the only treatment modality that can achieve this, as opposed to conventional 3D-treatment planning. MEDICAL NECESSITY FOR IGRT TREATMENT PLANNING: The target volume has inherent setup variation as a result of respiratory motion. IGRT, in conjunction with respiratory gating, is the only treatment modality that can correct for daily variances in target volume location, further improving the therapeutic ratio over IMRT alone. RESPIRATORY MOTION MANAGEMENT (22616) She was simulated today using respiratory correlated 4DCT in which respiratory motion was tracked and this was used to reconstruct images that represent the location of the tumor and critical structures throughout the breathing cycle. These images were imported into our treatment planning system and a maximum intensity projection was generated. These images were imported into our treatment planning system and based on these we developed target and avoidance volumes that represent the patient during normal respiration. A treatment strategy was developed to ensure good target coverage and normal tissue sparing in regions affected by respiratory motion. Brayden Chao MD
--- NOTE | 2024-02-23 08:09 | P.RADONC_ITS ---
On Treatment Visit - Date/Time of Treatment Date/Time: 02/23/24 08:09 History: RADIATION ONCOLOGY ON-TREATMENT VISIT DATE: 02/23/24 DIAGNOSIS: 88 y/o F with prior 35 pack year smoking history, quit 50 years ago; Prior left renal cell cancer s/p nephrectomy in 2013; CKD stage V. She now pres ents with a PET-avid, centrally necrotic LN conglomerate in the AP window abutting aortic arch and left PA. There was focal uptake in left retrosternal region that was indeterminate. No other clear sites of disease. Concern that this may represent recurrent kidney cancer, new primary lung cancer, or some other malignant process. She is not a candidate for IR biopsy and is refusing surgical biopsy with CT surgery. Referred for consideration of RT. I plan to treat with hypofractionated IMRT 60Gy/15 Fx. SITE: Left lung, mediastinum DOSE: 400 cGy of planned 6000 cGy (1 of 15 Fx) HISTORY: She reports feeling generally well. No complaints. EXAM: Well-appearing, NAD. Breathing comfortably on RA ASSESSMENT/PLAN: Tolerating radiotherapy well. Imaging checked. Continue radiation therapy as planned. She is noted to have 0/10 pain in clinic today. Her individualized pain management will therefore consist of no intervention needed as the patient notes no pain of significance. Brayden Chao MD
--- NOTE | 2024-02-23 08:11 | WPDRADIATPRO ---
Radiation Procedure Note - Date/Time Date/Time: 02/23/24 08:11 - Summary Summary: Procedure Date: 02/23/24 RADIATION ONCOLOGY VERIFICATION SIMULATION PURPOSE: The patient initially underwent virtual CT simulation. A simple simulation was performed on the linear accelerator utilizing the integrated kV CT for isocenter verification prior to treatment delivery of the first fraction. EQUIPMENT USED: Simulation was performed on the linear accelerator. PROCEDURE DETAILS: This simulation was performed prior to the first radiation fraction to the left lung, mediastinum. The patient was placed on the treatment couch withher body immobilized using a custom fabricated alpha-cradle in treatment position and aligned to the 3-point setup tattoos. An kV CT was acquired through the treatment area. The kV CT images were fused and aligned to the treatment planning CT image set. I reviewed the CT alignment images and made any necessary adjustments. Couch shifts were calculated in order to bring the patient into precise alignment prior to treatment delivery. ASSESSMENT: The isocenter alignment process was successful. ORDERS: Proceed with treatment as planned. Brayden Chao MD
[2024-02-23 11:47] VITALS: BP 136/64; PULSE 78; TEMP 36.6; O2SAT 98
--- NOTE | 2024-03-01 08:33 | P.RADONC_ITS ---
On Treatment Visit - Date/Time of Treatment Date/Time: 03/01/24 08:33 History: RADIATION ONCOLOGY ON-TREATMENT VISIT DATE: 03/01/24 DIAGNOSIS: 88 y/o F with prior 35 pack year smoking history, quit 50 years ago; Prior left renal cell cancer s/p nephrectomy in 2013; CKD stage V. She now pres ents with a PET-avid, centrally necrotic LN conglomerate in the AP window abutting aortic arch and left PA. There was focal uptake in left retrosternal region that was indeterminate. No other clear sites of disease. Concern that this may represent recurrent kidney cancer, new primary lung cancer, or some other malignant process. She is not a candidate for IR biopsy and is refusing surgical biopsy with CT surgery. Referred for consideration of RT. I plan to treat with hypofractionated IMRT 60Gy/15 Fx. SITE: Left lung, mediastinum DOSE: 2400 cGy of planned 6000 cGy (6 of 15 Fx) HISTORY: She reports feeling generally well. No complaints. EXAM: Well-appearing, NAD. Breathing comfortably on RA ASSESSMENT/PLAN: Tolerating radiotherapy well. Imaging checked. Continue radiation therapy as planned. She is noted to have 0/10 pain in clinic today. Her individualized pain management will therefore consist of no intervention needed as the patient notes no pain of significance. Brayden Chao MD
[2024-03-08 10:44] VITALS: BP 124/66; PULSE 80; RESP 18; TEMP 36.9; O2SAT 97
--- NOTE | 2024-03-08 10:49 | P.RADONC_ITS ---
On Treatment Visit - Date/Time of Treatment Date/Time: 03/08/24 10:49 History: RADIATION ONCOLOGY ON-TREATMENT VISIT DATE: 03/08/24 DIAGNOSIS: 88 y/o F with prior 35 pack year smoking history, quit 50 years ago; Prior left renal cell cancer s/p nephrectomy in 2013; CKD stage V. She now pre sents with a PET-avid, centrally necrotic LN conglomerate in the AP window abutting aortic arch and left PA. There was focal uptake in left retrosternal region that was indeterminate. No other clear sites of disease. Concern that this may represent recurrent kidney cancer, new primary lung cancer, or some other malignant process. She is not a candidate for IR biopsy and is refusing surgical biopsy with CT surgery. Referred for consideration of RT. I plan to treat with hypofractionated IMRT 60Gy/15 Fx. SITE: Left lung, mediastinum DOSE: 4400 cGy of planned 6000 cGy (11 of 15 Fx) HISTORY: She reports feeling generally well. No complaints. EXAM: Well-appearing, NAD. Breathing comfortably on RA ASSESSMENT/PLAN: Tolerating radiotherapy well. Imaging checked. Continue radiation therapy as planned. Completes RT soon. Plan 3 mo follow-up with PET prior She is noted to have 0/10 pain in clinic today. Her individualized pain management will therefore consist of no intervention needed as the patient notes no pain of significance. Brayden Chao MD H&P - Exam - Vital Signs Vital Signs - 24 hr 03/08/24 10:44 Temperature 36.9 C Pulse Rate 80 Respiratory Rate 18 Blood Pressure 124/66 Pulse Oximetry 97
--- NOTE | 2024-03-08 11:01 | WPDRADIATTXS ---
Radiation Treatment Summary - Date/Time Date/Time: 03/08/24 11:01 - Narrative Narrative: RADIATION ONCOLOGY COMPLETION OF THERAPY SUMMARY Identifying Data: 88 y/o F with prior 35 pack year smoking history, quit 50 years ago; Prior left renal cell cancer s/p nephrectomy in 2013; CKD stage V. She now presents with a PET-avid, centrally necrotic LN conglomerate in the AP window abutting aortic arch and left PA. There was focal uptake in left retrosternal region that was indeterminate. No other clear sites of disease. Concern that this may represent recurrent kidney cancer, new primary lung cancer, or some other malignant process. She is not a candidate for IR biopsy and is refusing surgical biopsy with CT surgery. Referred for consideration of RT. I plan to treat with hypofractionated IMRT 60Gy/15 Fx. She has recently completed a course of radiation therapy. Treatment Delivered: She received a total of 6000 Gy delivered in 400 cGy daily fractions utilizing photon IMRT. All treatment was delivered with the patient supine and in an alphacradle. All treatment was delivered between 02/23/24 and 03/14/24 Tolerance: She tolerated therapy relatively well. Disposition: The patient will follow-up with me in 3 mo with PET/CT prior (ordered by me). She is also instructed to continue follow-up with Dr. Shen in medical oncology. Brayden Chao MD
[2024-05-31 14:04] VITALS: BP 172/74; PULSE 82; RESP 20; TEMP 37.2; O2SAT 98
--- NOTE | 2024-05-31 15:23 | PDRADONCFUV ---
Follow Up Note Date/Time Date/Time: 05/31/24 15:23 Interval History Interval History: ?RADIATION ONCOLOGY FOLLOW UP DOS: 05/31/24 DIAGNOSIS: 88 y/o F with prior 35 pack year smoking history, quit 50 years ago; Prior left renal cell cancer s/p nephrectomy in 2013; CKD stage V. She now presents with a PET-avid, centrally necrotic LN conglomerate in the AP window abutting aortic arch and left PA. There was focal uptake in left retrosternal region that was indeterminate. No other clear sites of disease. Concern that this may represent recurrent kidney cancer, new primary lung cancer, or some other malignant process. She is not a candidate for IR biopsy and is refusing surgical biopsy with CT surgery. Referred for consideration of RT. I treated her with hypofractionated IMRT 60Gy/15 Fx completed 03/14/24 HISTORY & NARRATIVE:? She completed a course of radiation on 03/14/24 and returns today for her first follow-up since completion of radiation.?? Since completing radiation, she has done reasonably well. No thoracic or respiratory symptoms. She has been noticing progressive left lower extremity edema and pain in her left foot, especially with weight bearing. She arrives in wheelchair today. She is using pain medication as per her PCP to help with pain. She had an ER visit recently. She was found to have a left proximal LE DVT. Started on eliquis for AC. She was also noted on XR imaging to have a distal tibia lesion c/w metastases. She had PET imaging as well which we reviewed. She has been limiting weight bearing. Not interested in Orthopedic evaluation. PHYSICAL EXAMINATION:? Vital signs: see RN ECO General Appearance:? The patient is a well-developed, well-nourished female sitting, in no acute distress.? HEENT: normocephalic, atraumatic.? Mucus membranes moist Lungs:? Breathing comfortably at rest without wheeze Skin: warm, dry, no rashes or lesions Neurologic: Patient awake and alert, responds to questions appropriately MSK: Significant left LE edema. Tenderness and enlargement of the distal left tibia region. RADIOLOGY REVIEW: 05/25/24 IMPRESSION: 1. No significant interval change in size since 11/13/2023 in a couple mildly FDG avid masses at the AP window of the mediastinum consistent with likely metastatic renal cell carcinoma. No other lesions suspicious for metastatic disease. 2. Opacities in the left lower lobe with mild FDG uptake of linear and bandlike configuration which would favor atelectasis over pneumonia or malignancy. 3. Minimal pericardial effusion. 4. Status post left nephrectomy with no FDG uptake or interval change in size since 2011 in a couple subcentimeter soft tissue nodules at the nephrectomy bed which could represent either residual scarring or small splenules. 5. Small sliding-type hiatal hernia. 6. Sigmoid diverticulosis 05/19/24 ?XR left foot IMPRESSION: 1. 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 ASSESSMENT & PLAN:?? I had a long discussion with the patient. PET imaging shows good response to thoracic RT and no clear evidence of other sites of disease. However, her tibia is outside the field of view on the PET and was not included in this study. I reviewed her XR imaging and clinically she likely had a distal tibia metastases. 1.??? I recommend biopsy for tissue diagnosis. CT or US-guided with radiology at [facility]. This will help guide systemic therapy options. 2.??? I recommend palliative RT to left distal tibia, 30Gy/10Fx. She is not interested in orthopedic evaluation and would likely not be a surgical candidate. CT sim 06/07/24. I would plan to start her shortly after. Goal would be decrease pain, decrease risk of fracture, improve QOL. She is aware of short term and senior living risks including fatigue, skin irritation, damage to skin/soft tissue/bone, persistent pain despite treatment, and risk of fracture despite RT. She knows to contact me with questions or concerns prior to the return visit. Brayden Chao MD Pain 12/22, pain mgmt. includes opiates, palliative RT Time spent: 40 min H&P - Exam Vital Signs: Vital Signs - 24 hr 05/31/24 14:04 Temperature 37.2 C Pulse Rate 82 Respiratory Rate 20 Blood Pressure 172/74 H Pulse Oximetry 98
--- NOTE | 2024-07-12 10:15 | PDRADONCFUV ---
Follow Up Note Date/Time Date/Time: 07/12/24 10:15 Interval History Interval History: Procedure Date: 07/12/[address] SIMULATION PROCEDURE PURPOSE: The patient is undergoing a virtual CT simulation for external beam radiation treatment planning. TREATMENT SITE(S): Distal left tibia NUMBER OF AREAS OR SALDIVAR: One treatment area was simulated today NUMBER OF PORTS: The number and orientation of the treatment saldivar will be determined during the treatment planning process. EQUIPMENT USED: Simulation was performed on the department?s dedicated CT simulator. IMMOBILIZATION: An alpha cradle device was fabricated to immobilize the patient?s body in treatment position. CONTRAST MEDIA: The use of contrast was not required for this simulation. EXTERNAL MARKERS: No external markers were used. TATTOOS: Positioning tattoos were applied to the patient?s skin. BLOCKING: Custom blocks of complex design will be drawn to cover the target volume within the treatment field(s). FIELD MODIFIERS: A wedge, compensating filter, multiple MLC control points, and/or DMLC may be required to improve dose homogeneity. The decision whether to use these devices will occur during the treatment planning process. ISODOSE PLAN: A 3D treatment plan will be performed to deliver a specified dose to the treatment volume and to confirm adequate protection of nearby critical normal tissues. SCHEDULING Prior to delivering the first radiation fraction, a simulation will be performed on the linear accelerator utilizing electronic portal imaging to verify the isocenter location and block design. IMAGING QA: Weekly images will be obtained. MEDICAL NECESSITY FOR 3D TREATMENT PLANNING: The parameters of volume of interest can only be defined by PET, MRI, or CT. The target volume is in close proximity to a critical normal tissue that must be protected. Brayden Chao MD
--- NOTE | 2024-07-12 10:16 | PDRADONCFUV ---
Follow Up Note Date/Time Date/Time: 07/12/24 10:16 Interval History Interval History: RADIATION ONCOLOGY CLINICAL TREATMENT PLAN PATIENT NAME: Bianca Bello PROCEDURE DATE: 07/12/24 DIAGNOSIS: Bone metastases TREATMENT INTENT: Palliation SPECIAL TEST(S) INTERPRETED FOR TUMOR DELINEATION: none TREATMENT SITE(S): Distal left tibia NUMBER OF AREAS OR SALDIVAR: 1 treatment area NUMBER OF TREATMENT PORTS: TBD IMMOBILIZATION: Alphacradle TREATMENT DEVICES: none TREATMENT MODALITY: External photon beam PLANNED DOSE: 800 cGy in a single fraction FRACTIONATION: daily TECHNIQUE CONTEMPLATED: 3D-TRANSFORMER MECHANIC MEDICAL NECESSITY FOR 3D TREATMENT PLANNIND will be utilized if the parameters of volume of interest can only be defined by PET, MRI, or CT. Brayden Chao MD
--- NOTE | 2024-07-12 10:21 | P.RADPN_ITS ---
Follow Up Note Date/Time Date/Time: 07/12/24 10:21 Interval History Interval History: RADIATION ONCOLOGY FOLLOW UP DOS: 07/12/24 DIAGNOSIS:? 88 y/o F with prior 35 pack year smoking history, quit 50 years ago; Prior left renal cell cancer s/p nephrectomy in 2013; CKD stage V. She now presents with a PET-avid, centrally necrotic LN conglomerate in the AP window abutting aortic arch and left PA. There was focal uptake in left retrosternal region that was indeterminate. No other clear sites of disease. Concern that this may represent recurrent kidney cancer, new primary lung cancer, or some other malignant process. She is not a candidate for IR biopsy and is refusing surgical biopsy with CT surgery. Referred for consideration of RT. I treated her with hypofractionated IMRT 60Gy/15 Fx completed 03/14/24. She now presents with a large destructive distal left tibia bone metastasis that I plan to treat with 8Gyin 1 Fx. HISTORY & NARRATIVE: Returns for follow-up. Here with daughter. Arrives in wheelchair. Significant pain in left ankle with weight bearing. No pain at rest. She is mostly bed ridden. PCP is prescribing opiates for pain control. Have considered hospice, not interested at this time. Travel is a challenge. She has cancelled a few follow-up/simulation appointments over last month. PHYSICAL EXAMINATION:? Vital signs: see RN note ECO General Appearance:? The patient is a well-developed, well-nourished female sitting, in no acute distress.? In wheelchair. Localizes pain to left ankle. HEENT: normocephalic, atraumatic.? Mucus membranes moist Lungs:? Breathing comfortably at rest without wheeze Neurologic: Patient awake and alert, responds to questions appropriately ASSESSMENT & PLAN:?? She returns today for CT simulation.? I reviewed with her the steps involved in the CT simulation today. We also discussed the logistics involved with radiation treatment planning. We reviewed the anticipated acute and late effects of treatment. Written informed consent was signed in clinic today. Plan for 8Gy in1 Fx. She wants to proceed with this for pain control. She is aware Dr. Morris will be taking over the practice at [facility] later this week. She knows to contact me with questions or concerns prior to the return visit. Pain 0/10 w/o weight bearing, 10/10 with weight bearing, mgmt. including palliative RT, opiates. Brayden Chao MD Time spent: 30 min
--- NOTE | 2024-07-21 10:55 | WPDRADONCOTV ---
Assessment/Plan Plan Plan: Patient was recommended to follow up in 6 weeks for further evaluation and management. Discussed about non weight-bearing ambulation X-ray of the left tibia prior to her next follow-up appointment to evaluate regarding cortex involvement followed by orthopedic consult for possible juan r placement to prevent pathological fracture. On Treatment Visit Date/Time of Treatment Date/Time: 07/21/24 10:55 Identifying data: Ms. Bello is a very pleasant lady who has been diagnosed with metastatic non-small cell carcinoma of the lung and was recommended treatments to her left tibia Site: Left tibia: Patient was treated at 800 cGy per fraction for 1 fraction with a palliative intent
[2024-09-13 13:23] VITALS: BP 120/63; PULSE 81; RESP 20; TEMP 36.6; O2SAT 100
--- NOTE | 2024-09-13 14:40 | PDRADONCFUV ---
Follow Up Note Date/Time Date/Time: 09/13/24 14:40 Identifying Data Identifying Data: Identifying data: Ms. Bello is a very pleasant lady who has been diagnosed with metastatic non-small cell carcinoma of the lung and was recommended treatments to her left tibia Site: Left tibia: Patient was treated at 800 cGy per fraction for 1 fraction with a palliative intent Interval History Interval History: Patient seems to be doing well had x-ray of her tibia which shows some fragments along the radiated side. Patient has been having impaired appetite , constipation and has been losing weight. Patient is able to ambulate with some support and denies any pain H&P - Exam Vital Signs: Vital Signs - 24 hr 09/13/24 13:23 Temperature 36.6 C Pulse Rate 81 Respiratory Rate 20 Blood Pressure 120/63 Pulse Oximetry 100 Assessment/Plan Assessment Assessment: Very pleasant lady with the radiological data reveals a tibial fracture fragment/fracture however the pain appears to be unremarkable on patient is able to walk around the house. Patient was recommended to follow-up with her medical oncologist for further management
== END 2024-09-20 11:30 ==
LOC: AMCRADONC 13:30
PROVIDERS: PCP Internal Medicine; Referring Provider Internal Medicine Hematology & Oncology; Visit Provider Radiology Radiation Oncology
DX: C34.02 Malignant neoplasm of left main bronchus (principal); C79.51 Secondary malignant neoplasm of bone; Z08 Encounter for follow-up examination after completed treatment for malignant neoplasm; K59.00 Constipation, unspecified; R63.4 Abnormal weight loss; R63.0 Anorexia; N18.4 Chronic kidney disease, stage 4 (severe); D64.9 Anemia, unspecified; M25.572 Pain in left ankle and joints of left foot; M89.9 Disorder of bone, unspecified; E11.9 Type 2 diabetes mellitus without complications; I10 Essential (primary) hypertension; E78.5 Hyperlipidemia, unspecified; Z80.9 Family history of malignant neoplasm, unspecified; Z79.899 Other long term (current) drug therapy; Z98.890 Other specified postprocedural states; Z85.528 Personal history of other malignant neoplasm of kidney; Z90.5 Acquired absence of kidney; Z92.3 Personal history of irradiation
CPT/HCPCS: 36415; 77280; 77290; 77293; 77300; 77301; 77307; 77334; 77336; 77338; 77386; 77412; 80047; 80053; 82043; 82306; 82728; 83540; 83550; 83970; 84100; 85025; 99211; 99212; G0463